=== PATIENT | female | born 1930 | race Caucasian/White ===

== ENCOUNTER 2020-10-09 08:38 | Inpatient (IN) | payer MEDICARE ==
[~2020-10-09] VITALS: Ht 165.1 cm; Wt 45.8 kg
--- NOTE | 2020-10-09 09:15 | NUR ---
[id number] frm usp for Ble edema worst Rle and weakness. ems BG reading high. Patient a/ox3, breathing even and unlabored, no sob noted, needs attended, kept comfortable. Attached to the teletypesetter monitor.
[2020-10-09 09:23] LABS: BASOPHILS # (AUTO) 0.1 /CMM (0.0-0.2); BASOPHILS % (AUTO) 0.4 % (0.0-2.0); EOSINOPHILS % (AUTO) 0.1 % (0.0-6.0); HEMATOCRIT 41 % (33-45); HEMOGLOBIN 13.2 g/dL (11.5-14.8); LYMPHOCYTES # (AUTO) 0.6 /CMM (0.8-4.8); LYMPHOCYTES % (AUTO) 4.4 % (20.0-44.0); MEAN CORPUSCULAR HGB CONC 32 g/dl (31.0-36.0); MEAN CORPUSCULAR VOLUME 94 fL (82-100); MONOCYTES # (AUTO) 1.1 /CMM (0.1-1.30); MONOCYTES % (AUTO) 7.9 % (2.0-12.0); NEUTROPHILS # (AUTO) 11.9 /CMM (1.8-8.9); NEUTROPHILS % (AUTO) 87.2 % (43.0-81.0); PLATELET COUNT (AUTO) 189 /CMM (150-450); RED BLOOD CELL COUNT(AUTO) 4.32 MIL/uL (4.0-5.2); WHITE BLOOD COUNT (AUTO) 13.7 K/uL (4.3-11.0)
--- NOTE | 2020-10-09 09:25 | NUR ---
BLOOD DRAWN AND SENT TO LAB.
--- NOTE | 2020-10-09 09:36 | NUR ---
THUY GRIJALVA CALLED WANTS TO P[place]P [place] TEAM LEADER THE PATIENT WHEN READY.
--- NOTE | 2020-10-09 09:36 | NUR ---
PEDORTHIST AT BEDSIDE FOR XRAY.
[2020-10-09 09:39] LABS: BILIRUBIN,URINE Negative (NEGATIVE); COLOR,URINE YELLOW (YELLOW); LEUKOCYTE ESTERASE ,URINE Trace (NEGATIVE); NITRITE, URINE Negative (NEGATIVE); PROTEIN,URINE Negative (NEGATIVE); UGLUCOSE >=1000 mg/dL (NEGATIVE); UROBILINOGEN,URINE 0.2 EU/dL (0.2)
[2020-10-09 09:40] LABS: BACTERIA,URINE Few /HPF (None Seen); SQUAMOUS EPITHELIAL CELL,UR Few /HPF (None Seen)
[2020-10-09 09:49] LABS: ALANINE AMINOTRANSFERASE 191 U/L (12-78); ALBUMIN 3.2 g/dL (3.4-5.0); ALKALINE PHOSPHATASE 118 U/L (46-116); ASPARTATE AMINOTRANSFERASE 67 U/L (15-37); BILIRUBIN,DIRECT 0.4 mg/dL (0.0-0.2); BILIRUBIN,TOTAL 1.1 mg/dL (0.2-1.0); CALCIUM, SERUM 9.2 mg/dL (8.5-10.1); CARBON DIOXIDE 23 mmol/L (21-32); CHLORIDE 90 mmol/L (98-107); CREATININE 1.4 mg/dL (0.6-1.3); POTASSIUM 4.5 mmol/L (3.5-5.1); SODIUM SERUM 125 mmol/L (136-145); TOTAL PROTEIN, SERUM 6.2 g/dL (6.4-8.2); UREA NITROGEN, BLOOD 44 mg/dL (7-18)
[2020-10-09 09:51] LABS: GLUCOSE 585 mg/dL (74-106)
[2020-10-09] MEDS ORDERED: INSULIN REGULAR, HUMAN 100 UNIT in IV NS 0.9% 99 ML IV STA ×2 (10:16)
--- NOTE | 2020-10-09 10:29 | NUR ---
CALLED PHARMACY FOR INSULIN DRIP. PATIENT A/OX4, SCREAMING AT TIMES, AMBULATING WITH NO ASSISTANCE, RE-DIRECTED PATIENT TO STAY IN BED.
[2020-10-09] MEDS ORDERED: IV PREMIX NS +20MEQ KCL 1,000 L IV PRN (10:30)
[2020-10-09] MEDS ORDERED: VANCOMYCIN 1 GM in IV D5W 250 ML IV ONE (11:00)
[2020-10-09] MEDS ORDERED: CEFEPIME 1 GM in IV D5W 50 ML IV ONE (11:00)
[2020-10-09] MEDS ORDERED: MULT-447 PO (11:04)
[2020-10-09] MEDS ORDERED: IV PREMIX NS +20MEQ KCL 1 L IV PRN (11:36)
--- NOTE | 2020-10-09 11:44 | NUR ---
LAB CALLED PT COVID NEGATIVE (-)
[2020-10-09] MEDS ORDERED: INSULIN REGULAR, HUMAN 100 UNIT/ML 10 ML VIAL ONE (11:59)
[2020-10-09 12:19] LABS: CALCIUM, SERUM 8.7 mg/dL (8.5-10.1); CREATININE 1.3 mg/dL (0.6-1.3); MAGNESIUM 2.1 mg/dL (1.8-2.4); PHOSPHORUS 3.1 mg/dL (2.5-4.9); POTASSIUM 4.2 mmol/L (3.5-5.1)
[2020-10-09] MEDS ORDERED: IV NS 0.9% 1,000 ML BAG IV ONE (12:30)
[2020-10-09] MEDS ORDERED: INSULIN REGULAR, HUMAN 100 UNIT/ML 10 ML VIAL SQ ONE (12:30)
[2020-10-09 13:48] LABS: CALCIUM, SERUM 9.1 mg/dL (8.5-10.1); CARBON DIOXIDE 21 mmol/L (21-32); CHLORIDE 95 mmol/L (98-107); CREATININE 1.4 mg/dL (0.6-1.3); MAGNESIUM 2.4 mg/dL (1.8-2.4); POTASSIUM 4.8 mmol/L (3.5-5.1); SODIUM SERUM 127 mmol/L (136-145); UREA NITROGEN, BLOOD 45 mg/dL (7-18)
[2020-10-09 13:50] LABS: GLUCOSE 498 mg/dL (74-106)
[2020-10-09] MEDS ORDERED: DEXTROSE 50%-WATER 50 ML DISP.SYRIN IV PRN (14:30)
[2020-10-09] MEDS ORDERED: MAG HYDROX/AL HYDROX/SIMETH 30 ML UDC PO PRN (14:30)
[2020-10-09] MEDS ORDERED: ZOLPIDEM TARTRATE 5 MG TABLET PO PRN (14:30)
[2020-10-09] MEDS ORDERED: Z GUARD REMEDY 2 OZ OINT TP PRN (14:30)
[2020-10-09] MEDS ORDERED: ACETAMINOPHEN 325 MG TABLET PO PRN (14:30)
[2020-10-09] MEDS ORDERED: FUROSEMIDE 40 MG/4 ML VIAL IV SCH (14:30)
[2020-10-09] MEDS ORDERED: MAGNESIUM HYDROXIDE 30 ML UDC PO PRN (14:30)
[2020-10-09] MEDS ORDERED: FUROSEMIDE 40 MG/4 ML VIAL ONE (15:05)
--- NOTE | 2020-10-09 15:15 | NUR ---
VERIFIED WITH PHARMACY AND SPOKE TO JAMSHID, PER DR. NG D/[facility] THE INSULIN DRIP.
[2020-10-09 15:56] LABS: CALCIUM, SERUM 8.9 mg/dL (8.5-10.1); CARBON DIOXIDE 19 mmol/L (21-32); CHLORIDE 96 mmol/L (98-107); CREATININE 1.4 mg/dL (0.6-1.3); MAGNESIUM 2.3 mg/dL (1.8-2.4); PHOSPHORUS 2.8 mg/dL (2.5-4.9); POTASSIUM 4.6 mmol/L (3.5-5.1); SODIUM SERUM 128 mmol/L (136-145); UREA NITROGEN, BLOOD 45 mg/dL (7-18)
[2020-10-09] MEDS ORDERED: ENOXAPARIN SODIUM 30 MG/0.3 ML DISP.SYRIN SQ SCH (16:00)
[2020-10-09 16:09] LABS: GLUCOSE 409 mg/dL (74-106)
--- NOTE | 2020-10-09 16:47 | NUR ---
PATIENT RESTING, NO DISTRESS NOTED.
[2020-10-09] MEDS ORDERED: APIXABAN 5 MG TABLET PO SCH ×2 (17:00)
[2020-10-09] MEDS: APIXABAN 2.5 MG TABLET PO SCH (17:35)
[2020-10-09] MEDS: BLOOD SUGAR DIAGNOSTIC 1 EACH STRIP IN SCH ×2 (17:43→21:44)
[2020-10-09] MEDS: INSULIN REGULAR, HUMAN 100 UNIT/ML 3 ML VIAL SQ PRN ×2 (17:44→21:31)
--- NOTE | 2020-10-09 17:55 | NUR ---
room 201
--- NOTE | 2020-10-09 18:11 | NUR ---
REPORT GIVEN TO MAURIZIO HAYWOOD FOR PUJA.
--- NOTE | 2020-10-09 18:17 | NUR ---
RN NOTES RECEIVED PATIENT REPORT FROM YOBANY TREVINO FROM ER.
--- NOTE | 2020-10-09 18:52 | NUR ---
PATIENT A/OX4, BREATHING EVEN AND UNLABORED, NO SOB NOTED, NEEDS ATTENDED, KEPT COMFORTABLE. ENDORSED TO SUNG HAYWOOD.
--- NOTE | 2020-10-09 18:53 | NUR ---
RN NOTES PATIENT ARRIVED TO UNIT VIA GURNEY ACCOMPANIED BY 3 ER STAFF; BEDSIDE ENDORSEMENT RECEIVED FROM URIEL. VS TAKEN: BP-104/50, P-102, RESP-22, TEMP-97.3, A5KIW-35% IN RA. PRN NORCO GIVEN TO PATIENT SECONDARY TO COMPLAINT OF LEG PAIN. WILL CONTINUE TO MONITOR AND ENDORSE TO ACUTE CARE CLINICAL NURSE SPECIALIST RN FOR PUJA.
[2020-10-09] MEDS: HYDROCODONE/APAP 5/325MG TABLET PO PRN (19:05)
--- NOTE | 2020-10-09 19:30 | NUR ---
WEBBING SEAMER POUND NET NOTES PATIENT IN BED, AWAKE, ALERT AND ORIENTED X 2-3. BREATHING EVEN AND UNLABORED ON ROOM AIR. SHOWS NO SIGNS OF ACUTE RESPIRATORY DISTRESS. NO ACUTE PAIN. IV ON SHELLY 20G ITS CLEAN DRY AND INTACT. SHOWS NO SIGNS OF INFILTRATION, NO REDNESS. SAFETY PRECAUTIONS IN PLACE. BED IN LOWEST POSITION, LOCKED, AND CALL LIGHT KEPT WITHIN REACH. WILL CONTINUE TO MONITOR
--- NOTE | 2020-10-09 19:31 | NUR ---
REWIND OPERATOR NOTES COMPLETED SKIN ASSESSMENT AND TOOK PICTURED. ORDER WOUND CONSULT. COMPLETED BELONGINGS CHECKLIST. ORIENTED TO ROOM AND STAFF AND CALL LIGHT KEPT WITHIN REACH.
[2020-10-09 20:00] VITALS: BP 104/50
[2020-10-09] MEDS ORDERED: MORPHINE SULFATE INJ 2 MG/ML DISP.SYRIN IV PRN (22:50)
--- NOTE | 2020-10-09 22:58 | NUR ---
CRINKLING MACHINE OPERATOR NOTES RECEIVED ORDER FOR MORPHINE IV FROM . PT CONTINUE TO COMPLAIN OF PAIN AND WAS VERY RESTLESS. GIVEN PRN MORPHINE AT 2258. VITAL SIGNS WNL. WILL CONTINUE TO MONITOR.
[2020-10-10] VITALS: BP 102/64
--- NOTE | 2020-10-10 00:10 | NUR ---
SONG LYRICIST NOTES PT CONTINUED TO GET OUT OF BED, REMOVED TELE BOX, AND IV. RECEIVED ORDERS FOR RESTRAINTS FROM MD FOR PT SAFETY. MD ALSO AWARE OF NEW RHYTHM FROM EKG, AFLUTTER. PT IS ASYMPTOMATIC, NO NEW ORDERS FROM MD. AWAITING CARDIO CONSULT IN AM.
[2020-10-10 04:00] VITALS: BP 99/55
--- NOTE | 2020-10-10 05:00 | NUR ---
GOLF COURSE DESIGNER NOTES KEPT RESTRAINTS ON PT FOR APPOX 20MINS AT 0040 THEN REMOVED RESTRAINTS. WITH RESTRAINTS ON PT CONTINUED TO SCREAM AND YELL DISTURBING OTHER PTS. HAD VEST TAILOR SIT BY DOOR TO MONITOR PT. RECEIVED ORDERS FOR SITTER BC PATIENT CONTINUOUSLY GOES IN AND OUT OF BED, REMOVING TELE MONITOR, REMOVING IV LINES, AND GENERALLY RESTLESS. PT IS ALSO UNSTABLE UPON STANDING. CHARGE NURSE AND NURSING SUP AWARE FOR SITTER ORDERS.
[2020-10-10] MEDS: ONDANSETRON HCL/PF 4 MG/2 ML VIAL IVP PRN ×2 (05:28→22:11)
--- NOTE | 2020-10-10 06:38 | NUR ---
CONSERVATION AGENT NOTES PATIENT IN BED, AWAKE, ALERT AND ORIENTED X 1-2. BREATHING EVEN AND UNLABORED ON ROOM AIR. SHOWS NO SIGNS OF ACUTE RESPIRATORY DISTRESS. NO ACUTE PAIN. TELE MONITOR AFIB CONTROLLED. IV ON R FOREARM 22G ITS CLEAN DRY AND INTACT. SHOWS NO SIGNS OF INFILTRATION, NO REDNESS. ALL DUE MEDICATIONS. ALL NEEDS ATTENDED TO. SAFETY PRECAUTIONS IN PLACE. BED IN LOWEST POSITION, LOCKED, AND CALL LIGHT KEPT WITHIN REACH. WILL ENDORSE TO ONCOMING NURSE.
[2020-10-10 06:56] LABS: BASOPHILS # (AUTO) 0.1 /CMM (0.0-0.2); BASOPHILS % (AUTO) 0.6 % (0.0-2.0); HEMATOCRIT 44 % (33-45); HEMOGLOBIN 13.8 g/dL (11.5-14.8); LYMPHOCYTES # (AUTO) 0.8 /CMM (0.8-4.8); LYMPHOCYTES % (AUTO) 4.2 % (20.0-44.0); MEAN CORPUSCULAR HGB CONC 31 g/dl (31.0-36.0); MEAN CORPUSCULAR VOLUME 95 fL (82-100); MONOCYTES # (AUTO) 1.2 /CMM (0.1-1.30); MONOCYTES % (AUTO) 5.9 % (2.0-12.0); NEUTROPHILS # (AUTO) 17.9 /CMM (1.8-8.9); NEUTROPHILS % (AUTO) 89.3 % (43.0-81.0); PLATELET COUNT (AUTO) 204 /CMM (150-450); RED BLOOD CELL COUNT(AUTO) 4.62 MIL/uL (4.0-5.2)
[2020-10-10] MEDS: BLOOD SUGAR DIAGNOSTIC 1 EACH STRIP IN SCH ×4 (06:57→22:12)
--- NOTE | 2020-10-10 07:20 | NUR ---
COMMUNITY EDUCATION SPECIALIST OPENING NOTES PATIENT IS IN BED RESTING, ABLE TO BE AWAKENED. ALERT AND ORIENTED X1-2, ABLE TO MAKE NEEDS KNOWN. BREATHING EVEN AND UNLABORED, TOLERATING ON ROOM AIR, NO SOB. ON TELE MONITORING, READING OF AFIB CONTROLLED. IV ON R FOREARM #22G PATENT AND INTACT. CURRENTLY W/ 1:1 SITTER AT BEDSIDE. SAFETY PRECAUTIONS IN PLACE: BED LOCKED AND ON LOWEST POSITION, SR UP X2, CALL LIGHT WITHIN REACH. WILL CONTINUE TO MONITOR.
[2020-10-10 07:30] LABS: CALCIUM, SERUM 9.3 mg/dL (8.5-10.1); CREATININE 1.2 mg/dL (0.6-1.3); MAGNESIUM 2.4 mg/dL (1.8-2.4)
--- NOTE | 2020-10-10 07:30 | NUR ---
RN NOTES PATIENT WAS GETTING AGITATED WHEN VITAL SIGNS WERE BEING TAKEN PER STAFF ASSIGNED; EXPLAINED IMPORTANCE TO PATIENT BUT STILL GETS AGITATED WHEN VS ATTEMPTED TO BE TAKEN.
[2020-10-10 07:38] LABS: THYROID STIMULATING HORMONE 0.799 uIU/mL (0.358-3.74)
[2020-10-10] MEDS ORDERED: FUROSEMIDE 40 MG/4 ML VIAL IV SCH (09:00)
--- NOTE | 2020-10-10 09:11 | NUR ---
WOUND CARE CONSULT: REVIEWED CHART, NURSING DOCUMENTATION AND PHOTOS WHICH INDICATE DISCOLORATION ON LEGS AND CHEST WITH SKIN TEAR TO LEFT ELBOW AREA, PRESENT ON ADMISSION. RECOMMENDATIONS MADE FOR SKIN PROTECTION AND WOUND CARE. DISCUSSED WITH NURSING STAFF. MD IN AGREEMENT WITH PLAN OF CARE.
[2020-10-10] MEDS: APIXABAN 2.5 MG TABLET PO SCH ×2 (09:39→16:57)
[2020-10-10] MEDS: VANCOMYCIN HCL 0.75 GM in IV D5W 250 ML IV SCH (11:19)
[2020-10-10] MEDS: INSULIN REGULAR, HUMAN 100 UNIT/ML 3 ML VIAL SQ PRN ×3 (12:23→22:29)
--- NOTE | 2020-10-10 14:00 | NUR ---
RN NOTES PATIENT ABLE TO DRINK ICE WATER AND MILK, NO SWALLOWING ISSUES NOTED.
[2020-10-10] MEDS: HYDROCODONE/APAP 5/325MG TABLET PO PRN ×2 (14:29→20:04)
--- NOTE | 2020-10-10 17:35 | NUR ---
RN NOTES URINE SPECIMEN COLLECTED AND PLACED INSIDE THE REFRIGERATOR.
--- NOTE | 2020-10-10 19:00 | NUR ---
NIGHT COURT MAGISTRATE CLOSING NOTES PATIENT IS IN BED RESTING, ABLE TO BE AWAKENED. ALERT AND ORIENTED X1-2, MAKSE NEEDS KNOWN. BREATHING EVEN AND UNLABORED, CONTINUES TO TOLERATE ROOM AIR. ON TELE MONITORING, READING OF AFIB CONTROLLED/AFLUTTER. IV LINE ON R FOREARM #22G PATENT AND INTACT. CURRENTLY W/ 1:1 SITTER AT BEDSIDE. PATIENT NOTED W/ MULTIPLE EPISODES OF TRYING TO GET OUT OF BED UNASSISTED TO GO TO THE BATHROOM; SITTER AND OYSTER PLANTER ASSISTED PATIENT APPLICABLE. PATIENT YELLING TO BE LEFT ALONE WHEN IN THE BATHROOM. SEEN BY WOUND CARE NURSE TODAY W/ ORDERS NOTED. SAFETY PRECAUTIONS MAINTAINED: BED LOCKED AND ON LOWEST POSITION, SR UP X2, CALL LIGHT WITHIN REACH. WILL ENDORSE TO RELATIONSHIP SPECIALIST RN FOR PUJA.
--- NOTE | 2020-10-10 19:30 | NUR ---
RN NOTES PATIENT IS IN BED RESTING, ABLE TO BE AWAKENED. ALERT AND ORIENTED X1-2, MAKES NEEDS KNOWN. BREATHING EVEN AND UNLABORED, CONTINUES TO TOLERATE ROOM AIR. ON TELE MONITORING, READING OF AFIB CONTROLLED/AFLUTTER. IV LINE ON R FOREARM #22G PATENT AND INTACT. CURRENTLY W/ 1:1 SITTER AT BEDSIDE.SAFETY PRECAUTIONS MAINTAINED: BED LOCKED AND ON LOWEST POSITION, SR UP X2, CALL LIGHT WITHIN REACH. WILL CONTINUE TO MONITOR.
[2020-10-10 20:00] VITALS: BP 139/76
[2020-10-11] VITALS: BP 105/64
[2020-10-11] MEDS: HYDROCODONE/APAP 5/325MG TABLET PO PRN ×3 (02:00→19:34)
[2020-10-11 04:00] VITALS: BP 101/65
[2020-10-11] MEDS: BLOOD SUGAR DIAGNOSTIC 1 EACH STRIP IN SCH ×4 (06:46→21:37)
--- NOTE | 2020-10-11 06:54 | NUR ---
RN NOTES PATIENT IS IN BED RESTING, ABLE TO BE AWAKENED. ALERT AND ORIENTED X1-2, MAKES NEEDS KNOWN. BREATHING EVEN AND UNLABORED, CONTINUES TO TOLERATE ROOM AIR. ON TELE MONITORING, READING OF AFIB CONTROLLED/AFLUTTER. IV LINE ON R FOREARM #22G PATENT AND INTACT. CURRENTLY W/ 1:1 SITTER AT BEDSIDE.SAFETY PRECAUTIONS MAINTAINED: BED LOCKED AND ON LOWEST POSITION, SR UP X2, CALL LIGHT WITHIN REACH.PER LAB THE URINE SPECIMEN COLLECTED CAN NOT BE USED WILL ENDORSE TO NEXT SHIFT TO COLLECT URINE AGAIN. WILL ENDORSE CARE TO DAY SHIFT.
[2020-10-11 07:09] LABS: BASOPHILS % (AUTO) 0.3 % (0.0-2.0); EOSINOPHILS % (AUTO) 0.2 % (0.0-6.0); HEMATOCRIT 45 % (33-45); HEMOGLOBIN 14.1 g/dL (11.5-14.8); LYMPHOCYTES # (AUTO) 1.1 /CMM (0.8-4.8); LYMPHOCYTES % (AUTO) 6.1 % (20.0-44.0); MEAN CORPUSCULAR HGB CONC 32 g/dl (31.0-36.0); MEAN CORPUSCULAR VOLUME 94 fL (82-100); MONOCYTES # (AUTO) 1.7 /CMM (0.1-1.30); MONOCYTES % (AUTO) 9.4 % (2.0-12.0); NEUTROPHILS # (AUTO) 15.3 /CMM (1.8-8.9); PLATELET COUNT (AUTO) 219 /CMM (150-450); RED BLOOD CELL COUNT(AUTO) 4.77 MIL/uL (4.0-5.2); WHITE BLOOD COUNT (AUTO) 18.2 K/uL (4.3-11.0)
[2020-10-11 07:49] LABS: ALBUMIN 2.9 g/dL (3.4-5.0); ALKALINE PHOSPHATASE 221 U/L (46-116); CALCIUM, SERUM 9.2 mg/dL (8.5-10.1); CARBON DIOXIDE 18 mmol/L (21-32); CHLORIDE 97 mmol/L (98-107); CREATININE 1.8 mg/dL (0.6-1.3); GLUCOSE 124 mg/dL (74-106); MAGNESIUM 2.7 mg/dL (1.8-2.4); PHOSPHORUS 4.9 mg/dL (2.5-4.9); POTASSIUM 5.1 mmol/L (3.5-5.1); SODIUM SERUM 128 mmol/L (136-145); TOTAL PROTEIN, SERUM 5.7 g/dL (6.4-8.2)
[2020-10-11 08:00] VITALS: BP 99/62
--- NOTE | 2020-10-11 08:00 | NUR ---
RN Opening note Received patient in bed, awaken able to responds all stimuli, Pt screaming in tis morning, given pain medication and patient getting calm. Skin is warm to touch keep clean/dry intact IV site on right FA 22g, respiratory even and unlabored oj room air O2sat 98%. Kept locked bed with elevated HOB for aspiration precaution and ensure airway and lowest bed foe safety. Call light within reach, will continue to monitor.
[2020-10-11] MEDS: APIXABAN 2.5 MG TABLET PO SCH (08:10)
--- NOTE | 2020-10-11 08:30 | NUR ---
Patient noted Toroponin level 1.043 this morning, Dr. Garcia made aware. Will continue to monitor.
[2020-10-11 09:17] LABS: ALANINE AMINOTRANSFERASE 1326 U/L (12-78); ASPARTATE AMINOTRANSFERASE 1325 U/L (15-37)
[2020-10-11 09:21] LABS: UREA NITROGEN, BLOOD 86 mg/dL (7-18)
[2020-10-11] MEDS: ASPIRIN 81 MG TAB.CHEW PO SCH (10:15)
[2020-10-11 10:38] LABS: THYROID STIMULATING HORMONE 1.382 uIU/mL (0.358-3.74); URIC ACID 10.8 mg/dL (2.6-7.2)
--- NOTE | 2020-10-11 10:45 | NUR ---
Patient received order Echo and Duplex, but will hold until clarify CPR result according emergency room technician .
[2020-10-11 11:15] LABS: CREATINE KINASE, TOTAL 311 U/L (26-192)
[2020-10-11 12:00] VITALS: BP 109/48
[2020-10-11] MEDS: INSULIN REGULAR, HUMAN 100 UNIT/ML 3 ML VIAL SQ PRN ×3 (12:07→21:39)
[2020-10-11] MEDS: VANCOMYCIN HCL 0.75 GM in IV D5W 250 ML IV SCH (13:02)
[2020-10-11 16:00] VITALS: BP 95/65
[2020-10-11] MEDS: APIXABAN 5 MG TABLET PO SCH (17:16)
--- NOTE | 2020-10-11 17:59 | NUR ---
Patient received MRI order, obtained sign of consent over the phone by grand Son/Padilla Whyte(Lobo).
--- NOTE | 2020-10-11 18:41 | NUR ---
RN closing Patient in bed resting, does no appears distress or discomfort. Skin is warm to touch, keep clean/dry, intact IV on left hand 22g. Respiratory even and unlabored on room air O2sat 97%. Kept elevated HOB for ensure air way and aspiration precaution and lowest bed for safety. Call light within reach, will endorse real estate account executive
--- NOTE | 2020-10-11 19:15 | NUR ---
RN NOTE Patient Received. Patient is noted in bed, awake and verbally responsive. Patient is alert and oriented x1. Breathing even and non labored currently on room air. No shortness of breath or acute distress noted. Patient continues on tele monitor noted with Aflutter with a rate of 93. IV site to RFA 22G noted patent and intact. Bilateral wrist soft restraints noted in place, skin warm to touch. Safety precautions in place with bed in lowest position and locked, bed alarm on. Call light within reach. All needs attended to promptly. Will continue plan of care as ordered.
[2020-10-11 20:00] VITALS: BP 98/63
[2020-10-11 20:26] LABS: BILIRUBIN,URINE NEGATIVE (NEGATIVE); COLOR,URINE YELLOW (YELLOW); LEUKOCYTE ESTERASE ,URINE NEGATIVE (NEGATIVE); NITRITE, URINE NEGATIVE (NEGATIVE); PH,URINE 5.5 (5.0-8.0); PROTEIN,URINE TRACE mg/dl (NEGATIVE); UGLUCOSE 100 MG/DL mg/dL (NEGATIVE); UROBILINOGEN,URINE 0.2 EU/dL (0.2)
[2020-10-11 20:33] LABS: CREATININE, URINE 98.5 MG/DL (30.0-125.0); URINE TOTAL PROTEIN 59.6 mg/dL (0-11.9)
[2020-10-11 20:35] LABS: BACTERIA,URINE 2+ /HPF (None Seen); HYALINE CASTS, URINE Few /LPF (None Seen); RBC,URINE 0-2 /HPF (0-2); SQUAMOUS EPITHELIAL CELL,UR 0-2 /HPF (None Seen); URINE AMORPHOUS URATE Moderate /HPF (None Seen); WBC,URINE 0-2 /HPF (0-3)
[2020-10-11 20:55] LABS: EOSINOPHIL,URINE None Seen
[2020-10-12] VITALS: BP 99/61
[2020-10-12] MEDS: HYDROCODONE/APAP 5/325MG TABLET PO PRN (01:37)
[2020-10-12 04:00] VITALS: BP 102/58
[2020-10-12 06:30] LABS: EOSINOPHILS % (AUTO) 0.2 % (0.0-6.0); HEMATOCRIT 41 % (33-45); HEMOGLOBIN 13.2 g/dL (11.5-14.8); LYMPHOCYTES % (AUTO) 6.2 % (20.0-44.0); MEAN CORPUSCULAR HGB CONC 33 g/dl (31.0-36.0); MEAN CORPUSCULAR VOLUME 92 fL (82-100); MONOCYTES # (AUTO) 1.5 /CMM (0.1-1.30); MONOCYTES % (AUTO) 9.1 % (2.0-12.0); NEUTROPHILS # (AUTO) 13.9 /CMM (1.8-8.9); NEUTROPHILS % (AUTO) 84.5 % (43.0-81.0); PLATELET COUNT (AUTO) 195 /CMM (150-450); WHITE BLOOD COUNT (AUTO) 16.5 K/uL (4.3-11.0)
[2020-10-12] MEDS: BLOOD SUGAR DIAGNOSTIC 1 EACH STRIP IN SCH ×2 (06:35→12:19)
[2020-10-12] MEDS: INSULIN REGULAR, HUMAN 100 UNIT/ML 3 ML VIAL SQ PRN ×2 (06:39→12:29)
--- NOTE | 2020-10-12 07:00 | NUR ---
RN OPENING NOTE RECEIVED PT AWAKE IN BED AT THIS TIME. PT AOX1-2. NO SOB NOTED, NO S/S OF ANY ACUTE DISTRESS NOTED, NO C/O PAIN AT THIS TIME. PT STABLE ON RA. IV ACCESS NOTED IN RFA G#22, INTACT, PATENT AND FLUSHING WELL. PT NOTED ON BILATERAL SOFT WRIST RESTRAINS. SKIN AROUND RESTRAINTS INTACT, GOOD CIRCULATION NOTED, PULSES PRESENT BILATERALLY, CAPILLARY RILL <3SECONDS. ASPIRATIONS AND SAFETY PRECAUTIONS IN PLACE AND MAINTAINED AT ALL TIMES. BED IN LOWEST LOCKED POSITION, SIDE RAILS UP, HOB ELEVATED, TABLE AND CALL LIGHT WITHIN REACH. WILL CONTINUE TO MONITOR.
--- NOTE | 2020-10-12 07:14 | NUR ---
RN NOTE Patient is noted in bed, awake and verbally responsive. Patient is alert and oriented x1. Breathing even and non labored currently on room air. No shortness of breath or acute distress noted. Patient continues on tele monitor noted with Aflutter with a rate of 91. IV site to RFA 22G noted patent and intact. Mediations administered and tolerated well. Accu Check rendered and insulin given as per sliding scale. Bilateral wrist soft restraints noted in place, skin warm to touch. Safety precautions in place with bed in lowest position and locked, bed alarm on. Call light within reach. All needs attended to promptly. Will endorse to continue plan of care as ordered.
[2020-10-12 07:32] LABS: ALANINE AMINOTRANSFERASE 1039 U/L (12-78); ALBUMIN 2.7 g/dL (3.4-5.0); ALKALINE PHOSPHATASE 197 U/L (46-116); ASPARTATE AMINOTRANSFERASE 544 U/L (15-37); BILIRUBIN,DIRECT 0.7 mg/dL (0.0-0.2); CARBON DIOXIDE 24 mmol/L (21-32); CHLORIDE 97 mmol/L (98-107); CREATININE 1.4 mg/dL (0.6-1.3); GLUCOSE 151 mg/dL (74-106); MAGNESIUM 2.4 mg/dL (1.8-2.4); PHOSPHORUS 3.6 mg/dL (2.5-4.9); POTASSIUM 4.8 mmol/L (3.5-5.1); SODIUM SERUM 129 mmol/L (136-145); TOTAL PROTEIN, SERUM 5.2 g/dL (6.4-8.2)
[2020-10-12 07:34] LABS: UREA NITROGEN, BLOOD 84 mg/dL (7-18)
[2020-10-12 08:00] VITALS: BP 94/58
[2020-10-12 08:07] LABS: PTH, INTACT 48 pg/mL (15-65)
[2020-10-12] MEDS: APIXABAN 5 MG TABLET PO SCH (08:48)
[2020-10-12] MEDS: ASPIRIN 81 MG TAB.CHEW PO SCH (08:49)
[2020-10-12 11:07] LABS: *SPE A/G RATIO 1.2 (0.7-1.7); *SPE ALBUMIN 2.8 g/dL (2.9-4.4); *SPE ALPHA-1-GLOBULIN 0.4 g/dL (0.0-0.4); *SPE ALPHA-2-GLOBULIN 0.6 g/dL (0.4-1.0); *SPE GLOBULIN, TOTAL 2.4 g/dL (2.2-3.9); *SPE M-SPIKE Not Observed g/dL (Not Observed); *SPEGAMMA GLOBULIN 0.4 g/dL (0.4-1.8)
[2020-10-12] MEDS: VANCOMYCIN HCL 0.75 GM in IV D5W 250 ML IV SCH (12:21)
--- NOTE | 2020-10-12 14:15 | NUR ---
PT's EJECTION FRACTION OF 25%-30%, DR NG MADE AWARE. NO NEW ORDERS AT THIS TIME. WILL CONTINUE WITH PLAN OF CARE
--- NOTE | 2020-10-12 15:01 | NUR ---
RECEIVED ORDERS AT THIS TIME TO ADD KEFLEX 500MG PO BID X 5DAYS ON PT'S TMS FROM DR NG. ORDERS READ BACK AND CARRIED OUT. WILL CONTINUE TO MONITOR
[2020-10-12 16:00] VITALS: BP 96/71
--- NOTE | 2020-10-12 16:30 | NUR ---
RALPH ([phone]), PT's GRAND SON UNABLE TO BE REACHED BY PHONE TWICE TO UPDATE ABOUT PT BEING DISCHARGED. WILL F/U AND CONTINUE WITH PLAN OF CARE
--- NOTE | 2020-10-12 16:50 | NUR ---
HAND BENDER NOTES PT DISCHARGED TO [facility] AT THIS TIME. PT MEDICALLY CLEARED FOR DISCHARGE. REPORT CALLED IN TO DENIS DEXTER @[facility]. ALL CARE,LA NEEDS, MEDICATIONS AND TREATMENT ADMINISTERED ANTICIPATED PER ORDER. PT KEPT CLEAN AND DRY. DISCHARGE INSTRUCTIONS PROVIDED FOR. PT BELONGINGS ACCOUNTED FOR, SIGNED BY PT AND RETURNED TO PT. IV ACCESS REMOVED, PRESSURE APPLIED, SECURED WITH GAUZE AND TAPE. NO S/O BLEEDING NOTED. ID BAND REMOVED. PICTURES TAKEN AND FILED IN CHART. PT TRANSPORTED OUT OF UNIT IN STABLE CONDITION ACCOMPANIED ON A GURNEY BY TWO AMBULANCE PERSONNELS. DR BERENICE LIU
--- NOTE | 2020-10-12 17:30 | NUR ---
RECEIVED CALL FROM RALPH ([phone]), PT's GRAND SON. UPDATE PROVIDED ON PT DISCHARGED BACK TO [facility] . WILL F/U AND CONTINUE WITH PLAN OF CARE
== END 2020-10-12 15:00 | DRG 280 ==
LOC: ER 08:47 → TRANSITION 10:41 → TELE2 17:58
DX: I21.4 Non-ST elevation (NSTEMI) myocardial infarction (principal); N17.0 Acute kidney failure with tubular necrosis; L03.115 Cellulitis of right lower limb; E87.1 Hypo-osmolality and hyponatremia; E87.2 Acidosis; J90 Pleural effusion, not elsewhere classified; L03.116 Cellulitis of left lower limb; F03.90 Unspecified dementia, unspecified severity, without behavioral disturbance, psychotic disturbance, mood disturbance, and anxiety; I48.91 Unspecified atrial fibrillation; Z20.822 Contact with and (suspected) exposure to COVID-19; K57.30 Diverticulosis of large intestine without perforation or abscess without bleeding; D72.829 Elevated white blood cell count, unspecified; N13.9 Obstructive and reflux uropathy, unspecified; E86.1 Hypovolemia; R74.01 Elevation of levels of liver transaminase levels; E11.65 Type 2 diabetes mellitus with hyperglycemia; D25.9 Leiomyoma of uterus, unspecified
CPT/HCPCS: 36415; 71045-TC; 71250-TC; 76856-TC; 80048-TC; 80053-TC; 80061-TC; 80076-TC; 80202-TC; 81001; 82533; 82550-TC; 82553; 82570-TC; 82962-TC; 83605-TC; 83735-TC; 83880; 83935-TC; 83970; 84100-TC; 84155; 84155-TC; 84165; 84300-TC; 84443-TC; 84484-TC; 84550-TC; 85025-TC; 85730-TC; 86304; 87040-TC; 87081-TC; 87086-TC; 93307-TC; 93970-TC; A6253; G0378; J0692; J1815; J1940; J2270; J2405; J3370; J3490; J7030; J7060; U0003

== ENCOUNTER 2020-10-14 19:16 | Inpatient (IN) | payer MEDICARE ==
[~2020-10-14] VITALS: Ht 170.2 cm; Wt 42.6 kg
[~2020-10-14 19:16] MED LIST: MULT-447 PO
--- NOTE | 2020-10-14 19:20 | NUR ---
PT CHRISTOPHER FROM [facility] C/O ABD PAIN, POOR ORAL INTAKE, WORSENING BLE EDEMA. PT AWAKE, CONFUSED, AAOX1. VITAL SIGNS STABLE. RESPIRATIONS EVEN AND UNLABORED. NOTED WOUNDS BILATERAL UPPER AND LOWER EXTREMITIES AND WOUND R EYE LID. DRESSING ON SITE, NO BLEEDING NOTED. NO ACUTE DISTRESS NOTED AT THIS TIME. PT CHANGED TO GOWN AND PLACED ON MONITOR, WILL CONTINUE TO MONITOR
--- NOTE | 2020-10-14 19:20 | NUR ---
Note rudolphone in EDM - 10/14/20 at 2305 by ANALY PT CHRISTOPHER FROM [facility] C/O ABD PAIN, POOR ORAL INTAKE, WORSENING BLE EDEMA. PT AWAKE, CONFUSED. VITAL SIGNS STABLE. RESPIRATIONS EVEN AND UNLABORED. NO ACUTE DISTRESS NOTED AT THIS TIME. PLACED ON MONITOR, WILL CONTINUE TO MONITOR
[2020-10-14] MEDS ORDERED: IV NS 0.9% 500 ML BAG IV ONE (20:00)
--- NOTE | 2020-10-14 20:13 | NUR ---
PT ANITHA. COAL DUMPING EQUIPMENT OPERATOR AT BEDSIDE FOR BLOOD DRAW
--- NOTE | 2020-10-14 20:46 | NUR ---
RADIOLOGY AT BEDSIDE FOR CXR
--- NOTE | 2020-10-14 21:00 | NUR ---
URINE COLLECTED AND SENT TO LAB
--- NOTE | 2020-10-14 21:25 | NUR ---
COVID SWAB COLLECTED AND SENT TO LAB
[2020-10-14 21:29] LABS: BASOPHILS # (AUTO) 0.1 /CMM (0.0-0.2); BASOPHILS % (AUTO) 0.4 % (0.0-2.0); HEMATOCRIT 49 % (33-45); HEMOGLOBIN 15.6 g/dL (11.5-14.8); LYMPHOCYTES # (AUTO) 0.4 /CMM (0.8-4.8); LYMPHOCYTES % (AUTO) 1.9 % (20.0-44.0); MEAN CORPUSCULAR HGB CONC 32 g/dl (31.0-36.0); MEAN CORPUSCULAR VOLUME 96 fL (82-100); MONOCYTES # (AUTO) 1.2 /CMM (0.1-1.30); MONOCYTES % (AUTO) 5.5 % (2.0-12.0); NEUTROPHILS # (AUTO) 19.6 /CMM (1.8-8.9); NEUTROPHILS % (AUTO) 92.2 % (43.0-81.0); PLATELET COUNT (AUTO) 189 /CMM (150-450); RED BLOOD CELL COUNT(AUTO) 5.16 MIL/uL (4.0-5.2); WHITE BLOOD COUNT (AUTO) 21.3 K/uL (4.3-11.0)
[2020-10-14 21:42] LABS: BILIRUBIN,URINE SMALL (NEGATIVE); COLOR,URINE YELLOW (YELLOW); LEUKOCYTE ESTERASE ,URINE Negative (NEGATIVE); NITRITE, URINE Negative (NEGATIVE); PROTEIN,URINE Trace mg/dl (NEGATIVE); UGLUCOSE >=1000 mg/dL (NEGATIVE); UROBILINOGEN,URINE 0.2 EU/dL (0.2)
[2020-10-14 21:53] LABS: ALANINE AMINOTRANSFERASE 933 U/L (12-78); ALBUMIN 3.3 g/dL (3.4-5.0); ALKALINE PHOSPHATASE 228 U/L (46-116); ASPARTATE AMINOTRANSFERASE 165 U/L (15-37); BILIRUBIN,DIRECT 0.9 mg/dL (0.0-0.2); BILIRUBIN,TOTAL 1.5 mg/dL (0.2-1.0); CALCIUM, SERUM 9.2 mg/dL (8.5-10.1); CARBON DIOXIDE 15 mmol/L (21-32); CHLORIDE 90 mmol/L (98-107); CREATININE 1.6 mg/dL (0.6-1.3); SODIUM SERUM 121 mmol/L (136-145); TOTAL PROTEIN, SERUM 6.5 g/dL (6.4-8.2)
[2020-10-14 21:56] LABS: POTASSIUM 6.4 mmol/L (3.5-5.1)
[2020-10-14 21:57] LABS: GLUCOSE 523 mg/dL (74-106); UREA NITROGEN, BLOOD 104 mg/dL (7-18)
[2020-10-14] MEDS ORDERED: VANCOMYCIN 1 GM in IV D5W 250 ML IV ONE (22:00)
[2020-10-14] MEDS ORDERED: PIPERACILLIN /TAZOBACTAM 3.375 G in IV D5W 50 ML IV ONE (22:00)
[2020-10-14] MEDS ORDERED: IV NS 0.9% 1,000 ML BAG IV ONE ×2 (22:00)
[2020-10-14 22:06] LABS: BACTERIA,URINE Few /HPF (None Seen); HYALINE CASTS, URINE Rare /LPF (None Seen); RBC,URINE 0-2 /HPF (0-2); SQUAMOUS EPITHELIAL CELL,UR Few /HPF (None Seen); WBC,URINE 0-2 /HPF (0-3)
--- NOTE | 2020-10-14 22:10 | NUR ---
PT PULLED OUT IV. Catheter intact and site benign. Pressure and 4x4 applied to site. No bleeding noted.
[2020-10-14] MEDS ORDERED: INSULIN REGULAR, HUMAN 100 UNIT/ML 10 ML VIAL ONE (22:20)
[2020-10-14] MEDS ORDERED: INSULIN REGULAR, HUMAN 100 UNIT/ML 10 ML VIAL IV ONE (22:30)
--- NOTE | 2020-10-14 22:32 | NUR ---
GROUP SOCIAL WORKER AT BEDSIDE FOR BLOOD CULTURE BLOOD DRAW
--- NOTE | 2020-10-14 22:45 | NUR ---
REC'D NEG COVID RESULTS. AWARE
[2020-10-14] MEDS ORDERED: VANCOMYCIN 1 GM VIAL ONE (22:47)
[2020-10-14] MEDS ORDERED: PIPERACILLIN /TAZOBACTAM 3.375 G VIAL IV ONE (22:48)
[2020-10-14] MEDS ORDERED: MAG HYDROX/AL HYDROX/SIMETH 30 ML UDC PO PRN (23:00)
[2020-10-14] MEDS ORDERED: DEXTROSE 50%-WATER 50 ML DISP.SYRIN IV PRN (23:00)
[2020-10-14] MEDS ORDERED: MAGNESIUM HYDROXIDE 30 ML UDC PO PRN (23:00)
[2020-10-14] MEDS ORDERED: ACETAMINOPHEN 325 MG TABLET PO PRN (23:00)
[2020-10-14] MEDS ORDERED: MORPHINE SULFATE INJ 2 MG/ML DISP.SYRIN IV PRN (23:00)
[2020-10-14] MEDS ORDERED: SODIUM POLYSTYRENE SULFONATE 15 G/60 ML BOTTLE PO ONE (23:00)
[2020-10-14] MEDS ORDERED: Z GUARD REMEDY 2 OZ OINT TP PRN (23:00)
[2020-10-14] MEDS ORDERED: ONDANSETRON HCL/PF 4 MG/2 ML VIAL IVP PRN (23:00)
[2020-10-14] MEDS ORDERED: ASPIRIN 325 MG TABLET PO ONE (23:00)
[2020-10-14] MEDS ORDERED: ZOLPIDEM TARTRATE 5 MG TABLET PO PRN (23:30)
[2020-10-14] MEDS ORDERED: HEPARIN SODIUM, PORCINE 5000 UNITS/1 ML VIAL ONE (23:35)
[2020-10-14] MEDS ORDERED: ASPIRIN 325 MG TABLET ONE (23:35)
[2020-10-14] MEDS ORDERED: SODIUM POLYSTYRENE SULFONATE 15 G/60 ML BOTTLE ONE (23:35)
[2020-10-14] MEDS: HEPARIN SODIUM, PORCINE 5000 UNITS/1 ML VIAL SQ SCH (23:55)
[2020-10-14 23:59] LABS: CALCIUM, SERUM 8.2 mg/dL (8.5-10.1); CARBON DIOXIDE 15 mmol/L (21-32); CHLORIDE 96 mmol/L (98-107); CREATININE 1.6 mg/dL (0.6-1.3); SODIUM SERUM 125 mmol/L (136-145)
[2020-10-15] MEDS ORDERED: PIPERACILLIN /TAZOBACTAM 3.375 G in IV D5W 50 ML IV SCH ×2
[2020-10-15 00:04] LABS: GLUCOSE 477 mg/dL (74-106); POTASSIUM 6.4 mmol/L (3.5-5.1); UREA NITROGEN, BLOOD 103 mg/dL (7-18)
[2020-10-15] MEDS: FUROSEMIDE 40 MG/4 ML VIAL IV ONE ×2 (00:20→01:20)
[2020-10-15] MEDS: INSULIN REGULAR, HUMAN 100 UNIT/ML 10 ML VIAL IV ONE ×2 (00:21→01:21)
[2020-10-15] MEDS: CALCIUM CHLORIDE 1,000 MG/10 ML DISP.SYRIN IV ONE ×2 (00:22→01:22)
[2020-10-15] MEDS ORDERED: FUROSEMIDE 40 MG/4 ML VIAL ONE (00:58)
[2020-10-15] MEDS ORDERED: CALCIUM CHLORIDE 1,000 MG/10 ML DISP.SYRIN ONE ×2 (00:58→01:02)
[2020-10-15] MEDS: BLOOD SUGAR DIAGNOSTIC 1 EACH STRIP IN SCH ×6 (01:05→22:12)
[2020-10-15] MEDS: IV NS 0.9% 1,000 ML IV PRN (01:28)
--- NOTE | 2020-10-15 02:03 | NUR ---
PT RESTING COMFORTABLY IN BED. VITAL SIGNS STABLE. WILL CONTINUE TO MONITOR
[2020-10-15 03:47] LABS: BASOPHILS % (AUTO) 0.2 % (0.0-2.0); EOSINOPHILS % (AUTO) 0.1 % (0.0-6.0); HEMATOCRIT 44 % (33-45); HEMOGLOBIN 14.2 g/dL (11.5-14.8); LYMPHOCYTES # (AUTO) 0.6 /CMM (0.8-4.8); LYMPHOCYTES % (AUTO) 2.8 % (20.0-44.0); MEAN CORPUSCULAR HGB CONC 32 g/dl (31.0-36.0); MEAN CORPUSCULAR VOLUME 93 fL (82-100); MONOCYTES # (AUTO) 1.6 /CMM (0.1-1.30); MONOCYTES % (AUTO) 7.6 % (2.0-12.0); NEUTROPHILS % (AUTO) 89.3 % (43.0-81.0); PLATELET COUNT (AUTO) 172 /CMM (150-450); RED BLOOD CELL COUNT(AUTO) 4.69 MIL/uL (4.0-5.2); WHITE BLOOD COUNT (AUTO) 21.3 K/uL (4.3-11.0)
[2020-10-15 04:03] LABS: ALANINE AMINOTRANSFERASE 753 U/L (12-78); ALBUMIN 2.7 g/dL (3.4-5.0); ALKALINE PHOSPHATASE 194 U/L (46-116); ASPARTATE AMINOTRANSFERASE 131 U/L (15-37); BILIRUBIN,DIRECT 0.8 mg/dL (0.0-0.2); BILIRUBIN,TOTAL 1.2 mg/dL (0.2-1.0); CALCIUM, SERUM 9.3 mg/dL (8.5-10.1); CARBON DIOXIDE 17 mmol/L (21-32); CHLORIDE 97 mmol/L (98-107); CREATININE 1.7 mg/dL (0.6-1.3); MAGNESIUM 2.4 mg/dL (1.8-2.4); PHOSPHORUS 3.6 mg/dL (2.5-4.9); POTASSIUM 5.7 mmol/L (3.5-5.1); SODIUM SERUM 127 mmol/L (136-145); TOTAL PROTEIN, SERUM 5.3 g/dL (6.4-8.2)
[2020-10-15 04:09] LABS: GLUCOSE 428 mg/dL (74-106)
[2020-10-15 04:10] LABS: UREA NITROGEN, BLOOD 100 mg/dL (7-18)
[2020-10-15] MEDS ORDERED: PIPERACILLIN /TAZOBACTAM 3.375 G VIAL IV ONE (04:22)
[2020-10-15] MEDS ORDERED: PIPERACILLIN /TAZOBACTAM 3.375 G in IV D5W 50 ML IV ONE (05:00)
--- NOTE | 2020-10-15 05:55 | NUR ---
PT CLEANED, CHANGED, AND REPOSITIONS. VITAL SIGNS STABLE. RESTING COMFORTABLY IN BED, STILL ON CONTINOUS HIDE AND SKIN COLERER AND PULSE OX, WILL CONTINUE TO MONITOR
[2020-10-15] MEDS: INSULIN REGULAR, HUMAN 100 UNIT/ML 3 ML VIAL SQ PRN ×3 (06:10→14:16)
--- NOTE | 2020-10-15 07:11 | NUR ---
REPORT GIVEN TO YOBANY MAGUIRE FOR PUJA
--- NOTE | 2020-10-15 07:39 | NUR ---
RN NOTES GOT A CALL FROM TING FOR A NEW ADMISSION. PT'S VITAL SIGN BP 140/61 WV 100 RR 18 SA02 100%. IV SITE ON THE R FOREARM #18.
--- NOTE | 2020-10-15 07:39 | NUR ---
Report given to Edmund HAYWOOD for brayan.
[2020-10-15] MEDS ORDERED: ASPI-1169 PO (07:43)
[2020-10-15] MEDS ORDERED: ALLA266C2 TP (07:43)
[2020-10-15] MEDS ORDERED: APIX5TAB PO (07:43)
[2020-10-15] MEDS ORDERED: BLOO-668 IN (07:43)
[2020-10-15] MEDS ORDERED: ACET-868 PO (07:43)
[2020-10-15] MEDS ORDERED: CEPH-570 PO (07:43)
[2020-10-15] MEDS ORDERED: INSU100V3 SQ (07:43)
[2020-10-15] MEDS ORDERED: HYDR-4384 PO (07:43)
--- NOTE | 2020-10-15 08:28 | NUR ---
wheeled patient via gurney accompanied by RN and emt in no distress. RN at bedside to assume care.
[2020-10-15] MEDS: HEPARIN SODIUM, PORCINE 5000 UNITS/1 ML VIAL SQ SCH ×2 (09:00→20:10)
--- NOTE | 2020-10-15 09:30 | NUR ---
RN NOTES PATIENT WAS BROUGHT TO HER ROOM VIA GURNEY. ASSESSED THE SKIN WITH THE WOUND CONSULT NURSE. PT WAS UNCOOPERATIVE. HAS MULTIPLE BRUISES AND TEAR ON THE SKIN, PHOTO TAKEN. HELD ANTICOAGULANT MED, NOTICED SOME SIGNS OF BLEEDING. OFFLOADED LOWER EXTREMITIES. WILL CONTINUE TO MONITOR.
--- NOTE | 2020-10-15 09:42 | NUR ---
WOUND CARE CONSULT: PT PRESENTS WITH MULTIPLE SKIN ISSUES INCLUDING RT EYEBROW STERI STRIP, WEEPING EDEMA TO LOWER LEGS WITH DISCOLORATION, DISCOLORED AREAS TO UPPER EXTREMITIES WITH SKIN TEARS TO LEFT ARM, DISCOLORATION TO RT HIP AREA AND SACRAL SCAR, ALL PRESENT ON ADMISSION. RECOMMENDATIONS MADE FOR SKIN PROTECTION AND WOUND CARE. DISCUSSED WITH NURSING STAFF. VERY DIFFICULT ASSESSMENT DUE TO PT AGITATED AND SCREAMING AT TIMES. PT IS INCONTINENT. PT IS ON [facility] LOW AIRLOSS BED. IN AGREEMENT WITH PLAN OF CARE. Addendum: 10/15/20 at 0944 by YOSHI WALKER WNDNU Amended: Links added.
[2020-10-15] MEDS: MULTIVIT W/MINERALS 1 TAB TABLET PO SCH (09:56)
--- NOTE | 2020-10-15 10:30 | NUR ---
RN NOTES PATIENT PULLED OUT HER IV. ATTEMPTED TO REINSERT BUT WASN'T SUCCESSFUL. INFORMED DR NG AND ORDERED FOR A MIDLINE INSERTION.
[2020-10-15 12:00] VITALS: BP 113/60
[2020-10-15] MEDS: PIPERACILLIN /TAZOBACTAM 2.25 G in IV D5W 50 ML IV SCH ×3 (12:00→23:32)
--- NOTE | 2020-10-15 14:00 | NUR ---
RN NOTES KEPT ON FOLLOWING UP FOR MIDLINE INSERTION, NO ONE IS AVAILABLE. INFORMED CHARGE NURSE HILARIO WELL.
[2020-10-15 16:00] VITALS: BP 107/56
--- NOTE | 2020-10-15 16:00 | NUR ---
RN NOTES 2 ZOSYN BAGS NOT ADMINISTERED. REASON IS NO IV LINE AVAILABLE. WILL CONTINUE FOLLOWING UP.
--- NOTE | 2020-10-15 19:30 | NUR ---
legal process specialist opening notes Received Pt from morning nurse. Pt is alert and orientedX1-2. Respiration is normal in room air. No SOB. No S/S of distress noted. Pt has no IV line. Will have midline insertion later per am nurse. Bilateral soft wrist restraints is intact, skin is warm to touch and circulation is check Q 2hr. Safety precautions is maintained. Bed at low position, brakes locked, side rails upX2, hob elevated and call light is within reach. Will continue to monitor.
--- NOTE | 2020-10-15 19:58 | NUR ---
[place] operator notes Called nursing call centre supervisor regarding midline insertion. Per nursing call centre supervisor, Midline nurse is coming tonight. Will continue to monitor.
--- NOTE | 2020-10-15 20:12 | NUR ---
RN CLOSING NOTES PATIENT IN BED. A/0 X1. B WRIST ON SOFT RESTRAINT. NO IV LINE INSERTED YET. SAFETY MEASURES MAINTAINED. BED IN LOWEST POSITION, LOCKED. SIDE RAILS UP X 3. CALL LIGHT WITHIN REACH. WILL ENDORSE TO METROLOGY ENGINEER FOR PUJA.
--- NOTE | 2020-10-15 20:30 | NUR ---
utilization reviewer notes Tried to inserted IV access but unsuccessful. Charge nurse is aware and informed. Midline nurse is coming.
[2020-10-15 20:40] VITALS: BP 102/61
--- NOTE | 2020-10-15 21:47 | NUR ---
business programmer notes Midline nurse YOBANY Davalos at the bedside.
--- NOTE | 2020-10-15 21:55 | NUR ---
videographer notes SHELLY midline# 18 is inserted by YOBANY Davalos.
--- NOTE | 2020-10-15 22:13 | NUR ---
marquetry worker notes Pt's blood sugar was 39 after second check. Pt blood sugar first time checked was 39. Pt's passed nursing swallow eval at the bedside. Gave Pt's apple juice, two milk with sugar but Pt's blood sugar remaining the same. Gave dextrose inj 50 ml as ordered for low blood sugar.
[2020-10-15] MEDS: VANCOMYCIN 500 MG in IV D5W 100 ML IV SCH (22:18)
--- NOTE | 2020-10-15 22:42 | NUR ---
tanning drum operator notes Pt's blood sugar is 156. Charge nurse is aware and informed. Will continue to monitor.
[2020-10-15] MEDS: HYDROCODONE/APAP 5/325MG TABLET PO PRN (23:00)
--- NOTE | 2020-10-15 23:00 | NUR ---
toll booth operator notes Pt's complaining of pain and requesting pain meds. Administered norco 5-325 mg/1 tab/po/prn as ordered for generalized pain. VS is stable. Safety precautions is maintained. Will continue to monitor.
[2020-10-16] VITALS: BP 105/58
[2020-10-16 00:11] VITALS: BP 105/58
[2020-10-16] MEDS: IV NS 0.9% 1,000 ML IV PRN ×2 (00:14→12:30)
[2020-10-16] MEDS: BLOOD SUGAR DIAGNOSTIC 1 EACH STRIP IN SCH ×6 (00:20→20:28)
[2020-10-16] MEDS: INSULIN REGULAR, HUMAN 100 UNIT/ML 3 ML VIAL SQ PRN ×4 (00:25→13:53)
[2020-10-16 04:26] VITALS: BP 133/46
[2020-10-16] MEDS: PIPERACILLIN /TAZOBACTAM 2.25 G in IV D5W 50 ML IV SCH ×3 (05:03→17:11)
[2020-10-16 06:04] LABS: BASOPHILS # (AUTO) 0.1 /CMM (0.0-0.2); BASOPHILS % (AUTO) 0.4 % (0.0-2.0); HEMATOCRIT 39 % (33-45); HEMOGLOBIN 12.8 g/dL (11.5-14.8); LYMPHOCYTES # (AUTO) 0.3 /CMM (0.8-4.8); LYMPHOCYTES % (AUTO) 1.5 % (20.0-44.0); MEAN CORPUSCULAR HGB CONC 33 g/dl (31.0-36.0); MEAN CORPUSCULAR VOLUME 91 fL (82-100); MONOCYTES # (AUTO) 0.7 /CMM (0.1-1.30); MONOCYTES % (AUTO) 3.1 % (2.0-12.0); NEUTROPHILS # (AUTO) 21.8 /CMM (1.8-8.9); PLATELET COUNT (AUTO) 140 /CMM (150-450); RED BLOOD CELL COUNT(AUTO) 4.21 MIL/uL (4.0-5.2); WHITE BLOOD COUNT (AUTO) 22.9 K/uL (4.3-11.0)
[2020-10-16 06:06] LABS: ALBUMIN 2.5 g/dL (3.4-5.0); BILIRUBIN,TOTAL 1.3 mg/dL (0.2-1.0); CALCIUM, SERUM 8.9 mg/dL (8.5-10.1); CREATININE 1.3 mg/dL (0.6-1.3); MAGNESIUM 2.3 mg/dL (1.8-2.4); PHOSPHORUS 3.1 mg/dL (2.5-4.9); POTASSIUM 4.2 mmol/L (3.5-5.1); TOTAL PROTEIN, SERUM 4.8 g/dL (6.4-8.2)
--- NOTE | 2020-10-16 06:59 | NUR ---
infertility nurse closing notes Pt is resting in bed comfortably. Pt is alert and orientedX1-2. Respiration is normal in room air. No SOB. No S/S of distress noted. Tele monitor showed aflutter with PVC Hr at 97. SHELLY midline# 18 is clean, intact and infusing well NS@ 75 ml/hr. VS is stable. Afebrile. Bilateral soft wrist restraints is intact, skin is warm to touch and circulation is check Q 2hr. Kept Pt clean, dry and comfortable. Safety precautions is maintained. Bed at low position, brakes locked, side rails upX2, hob elevated and call light is within reach. Will endorse to morning nurse for PUJA.
--- NOTE | 2020-10-16 07:20 | NUR ---
PHYSICAL THERAPY RESIDENT OPENING NOTES RECEIVED PT RESTING IN BED. A/O X1-2. NO SOB NOTED. IN NO APPARENT DISTRESS. SHELLY MIDLINE #18, INTACT, NS RUNNING @ 75 ML/HR. PROVIDED SAFETY MEASURES. BED IN LOWEST POSITION, BRAKES LOCKED. SIDE RAILS UP X2. CALL LIGHT WITHIN REACH. WILL CONTINUE PLAN OF CARE.
[2020-10-16 08:00] VITALS: BP 109/95
[2020-10-16] MEDS: MULTIVIT W/MINERALS 1 TAB TABLET PO SCH (09:26)
[2020-10-16] MEDS: HEPARIN SODIUM, PORCINE 5000 UNITS/1 ML VIAL SQ SCH ×2 (09:28→23:04)
[2020-10-16] MEDS ORDERED: Z GUARD REMEDY 2 OZ OINT TP PRN (11:30)
[2020-10-16] MEDS ORDERED: ACETAMINOPHEN 325 MG TABLET PO PRN (11:30)
[2020-10-16] MEDS ORDERED: ENSURE ENLIVE CHOC 237 ML CAN PO SCH (11:30)
[2020-10-16] MEDS ORDERED: HYDROCODONE/APAP 5/325MG TABLET PO PRN (11:30)
[2020-10-16] MEDS ORDERED: BLOOD SUGAR DIAGNOSTIC 1 EACH STRIP IN SCH (12:00)
[2020-10-16 15:38] LABS: D-DIMER 2.12 mg/L(FEU (0.17-0.50)
[2020-10-16 16:00] VITALS: BP 90/50
[2020-10-16] MEDS ORDERED: APIXABAN 5 MG TABLET PO SCH ×2 (17:00)
[2020-10-16] MEDS: GLUCERNA SHAKE 237 ML CAN PO SCH (17:00)
--- NOTE | 2020-10-16 18:14 | NUR ---
MS RN CLOSING NOTES PT IN BED. A/O X1-2. NO SOB NOTED. NO S/S OF RESPIRATORY DISTRESS. BOTH WRIST WITH SOFT RESTRAINT. SHELLY MIDLINE #18, INTACT, NS RUNNING @ 75 ML/HR. ROUTINE MEDS WERE GIVEN ORDERED. VERBALIZING THAT SHE'S DYING. PROVIDED TIME, CARE AND SAFETY MEASURES. BED IN LOWEST POSITION, BRAKES LOCKED. SIDE RAILS UP X2. CALL LIGHT WITHIN REACH. WILL ENDORSE TO GEOSPATIAL SCIENTIST FOR PUJA.
[2020-10-16 20:00] VITALS: BP 118/69
--- NOTE | 2020-10-16 20:29 | NUR ---
BLOOD SUGAR =116, NO COVERAGE.
[2020-10-16] MEDS: CEFEPIME 1 GM in IV D5W 50 ML IV SCH (23:02)
[2020-10-16] MEDS: HYDROCODONE/APAP 5/325MG TABLET PO PRN (23:28)
[2020-10-16] MEDS: VANCOMYCIN 500 MG in IV D5W 100 ML IV SCH (23:45)
[2020-10-17] MEDS: BLOOD SUGAR DIAGNOSTIC 1 EACH STRIP IN SCH ×6 (00:29→21:19)
--- NOTE | 2020-10-17 00:30 | NUR ---
BLOOD LSZFG=425,NO COVERAGE.
[2020-10-17] MEDS: IV NS 0.9% 1,000 ML IV PRN (02:58)
[2020-10-17] MEDS: INSULIN REGULAR, HUMAN 100 UNIT/ML 3 ML VIAL SQ PRN ×5 (05:54→21:19)
--- NOTE | 2020-10-17 07:33 | NUR ---
MS RN OPENING NOTES RECEIVED PT AWAKE IN BED IN NO ACUTE SIGNS OF DISTRESS. A/O X1-2. VERBALLY RESPONSIVE AND CONFUSED. QUIET AND APPEARS COMFORTABLE AT THIS TIME. B/L SOFT WRIST RESTRAINTS IN PLACE, GOOD PERIPHERAL PULSES NOTED. ON 02 VIA N/C AT 3LPM, TOLERATING WELL WITH NO SOB NOTED. SHELLY MIDLINE #18 INTACT WITH NS RUNNING @ 75 ML/HR. SAFETY MEASURES IN PLACE: BED IN LOWEST POSITION AND BRAKES LOCKED. SIDE RAILS UP X2. CALL LIGHT WITHIN REACH. WILL CONTINUE TO MONITOR PT.
[2020-10-17 08:00] VITALS: BP 153/77
[2020-10-17 08:11] LABS: BASOPHILS # (AUTO) 0.1 /CMM (0.0-0.2); BASOPHILS % (AUTO) 0.4 % (0.0-2.0); HEMATOCRIT 37 % (33-45); LYMPHOCYTES # (AUTO) 0.4 /CMM (0.8-4.8); LYMPHOCYTES % (AUTO) 1.5 % (20.0-44.0); MEAN CORPUSCULAR HGB CONC 32 g/dl (31.0-36.0); MEAN CORPUSCULAR VOLUME 92 fL (82-100); MONOCYTES # (AUTO) 1.4 /CMM (0.1-1.30); MONOCYTES % (AUTO) 4.8 % (2.0-12.0); NEUTROPHILS # (AUTO) 26.9 /CMM (1.8-8.9); NEUTROPHILS % (AUTO) 93.3 % (43.0-81.0); PLATELET COUNT (AUTO) 97 /CMM (150-450); RED BLOOD CELL COUNT(AUTO) 4.05 MIL/uL (4.0-5.2); WHITE BLOOD COUNT (AUTO) 28.8 K/uL (4.3-11.0)
[2020-10-17] MEDS: GLUCERNA SHAKE 237 ML CAN PO SCH ×2 (08:23→17:18)
[2020-10-17] MEDS: ASPIRIN 81 MG TAB.CHEW PO SCH (09:40)
[2020-10-17] MEDS: MULTIVIT W/MINERALS 1 TAB TABLET PO SCH (09:41)
[2020-10-17] MEDS: CEFEPIME 1 GM in IV D5W 50 ML IV SCH ×2 (09:41→22:00)
[2020-10-17] MEDS: HEPARIN SODIUM, PORCINE 5000 UNITS/1 ML VIAL SQ SCH ×2 (10:48→21:14)
[2020-10-17 11:10] LABS: CALCIUM, SERUM 8.8 mg/dL (8.5-10.1); CARBON DIOXIDE 15 mmol/L (21-32); CHLORIDE 103 mmol/L (98-107); CREATININE 1.6 mg/dL (0.6-1.3); GLUCOSE 267 mg/dL (74-106); MAGNESIUM 2.4 mg/dL (1.8-2.4); PHOSPHORUS 4.1 mg/dL (2.5-4.9); POTASSIUM 4.7 mmol/L (3.5-5.1); SODIUM SERUM 136 mmol/L (136-145); UREA NITROGEN, BLOOD 76 mg/dL (7-18)
[2020-10-17] MEDS: HYDROCODONE/APAP 5/325MG TABLET PO PRN (12:42)
--- NOTE | 2020-10-17 12:49 | NUR ---
RN NOTES PT SCREAMING, MOANING AND C/O GENERALIZED PAIN, PRN NORCO 5/325 MG PO GIVEN TA 1242. WILL CONTINUE TO MONITOR AND REASSESS PT.
[2020-10-17 13:17] LABS: BAND % (MANUAL) 2 % (0.0-5.0); LYMPHOCYTES % (MANUAL) 2 % (16-48); MONOCYTES % (MANUAL) 2 % (0-11.0); NEUTROPHILS % (MANUAL) 94 (42-76)
[2020-10-17 13:56] LABS: ALBUMIN 2.2 g/dL (3.4-5.0); BILIRUBIN,DIRECT 0.8 mg/dL (0.0-0.2); BILIRUBIN,TOTAL 1.7 mg/dL (0.2-1.0); TOTAL PROTEIN, SERUM 4.5 g/dL (6.4-8.2)
[2020-10-17 16:00] VITALS: BP 92/54
--- NOTE | 2020-10-17 17:42 | NUR ---
RN NOTES PT FOR ULTRASOUND OF ABDOMEN COMPLETE TOMORROW MORNING. NPO POST MIDNIGHT TO BE ENFORCED. WILL ENDORSE TO NEXT SHIFT RN.
--- NOTE | 2020-10-17 18:42 | NUR ---
MS RN CLOSING NOTES PATIENT IN BED ASLEEP AT THIS TIME, EASILY AWAKENS. HOB ELEVATED. A/O X1-2. VERBALLY RESPONSIVE AND CONFUSED. EMOTIONAL SUPPORT GIVEN AND ALL NEEDS/CARE WELL ATTENDED. PT WITH B/L SOFT WRIST RESTRAINTS IN PLACE, GOOD PERIPHERAL PULSES NOTED. ON 02 VIA N/C AT 3LPM, TOLERATING WELL WITH NO SOB NOTED. SHELLY MIDLINE #18 INTACT, PATENT AND FLUSHES WELL. SAFETY MEASURES IN PLACE: BED IN LOWEST POSITION AND BRAKES LOCKED. SIDE RAILS UP X2 AND CALL LIGHT WITHIN REACH. WILL ENDORSE TO MIDDLE OR INTERMEDIATE SCHOOL PRINCIPAL NURSE FOR PUJA.
--- NOTE | 2020-10-17 19:30 | NUR ---
MS PRASHANTH INITIAL NOTES Received Pt from morning nurse. Pt is alert and orientedX1-2. Respiration is even and unlabored not in any acute distress noted. No SOB on O2 at 2liters via nasal canula. patient has Midline on her right upper arm patent and intact. Bilateral soft wrist restraints on both hands , skin is warm to touch and circulation is check Q 2hr. Safety precautions is maintained. Aspiration precaution implemented and observed. Bed at low position, brakes locked, side rails upX2, hob elevated and call light is within reach. Will continue to monitor.
[2020-10-17 20:00] VITALS: BP 90/43
--- NOTE | 2020-10-17 21:20 | NUR ---
ms machine rope maker notes blood sugar checked 125, no insulin due at this time, no signs of hypo glycemia noted. due meds also administered. will continue monitoring.
[2020-10-18] MEDS: VANCOMYCIN 500 MG in IV D5W 100 ML IV SCH (01:01)
--- NOTE | 2020-10-18 01:02 | NUR ---
ROLF LIGHT TROUGH 20. [facility] NOTIFIED. WILL REPEAT TROUGH AGUSTIN OCT 18. WILL ADMINISTER DOSE.
[2020-10-18] MEDS: BLOOD SUGAR DIAGNOSTIC 1 EACH STRIP IN SCH ×6 (01:05→21:30)
[2020-10-18] MEDS: INSULIN REGULAR, HUMAN 100 UNIT/ML 3 ML VIAL SQ PRN ×6 (01:14→22:25)
--- NOTE | 2020-10-18 05:14 | NUR ---
ms residential caregiver notes blood sugar checked done 141, 2 units of insulin given as ordered. no signs of hypo/hyper glycemia noted. pt remain sleeping but noticed moved her arm once in a while trying to removed his O2. will continue monitoring.
--- NOTE | 2020-10-18 06:58 | NUR ---
MS REAL ESTATE LEASING MANAGER CLOSING NOTES PT AWAKE AND ALERT ONLY TO HER NAME. SCREAM ON AND OFF BUT NO SIGNS OF ANY ACUTE DISTRESS NOTED. ALL DUE MEDS GIVEN. MORNING CARE RENDERED WELL WOUND CARE TREATMENT. REPOSITION HER FOR COMFORT. PT BLOOD SUGAR 96, NO SIGNS OF HYPO GLYCEMIA NOTED. KEPT HER WARM AND COMFORTABLE AT ALL TIMES. BED IN LOW AND LOCK IN POSITION WITH SIDE RAILS X2 UP. PT STILL ON SOFT WRIST RESTRAINT FOR SAFETY. SKIN WARM AND PULSE PRESENT. WILL ENDORSE TO AM NURSE FOR CONTINUITY OF CARE.
--- NOTE | 2020-10-18 07:32 | NUR ---
MS RN OPENING NOTES RECEIVED PT AWAKE IN BED IN NO ACUTE SIGNS OF DISTRESS. A/O X1-2. ABLE TO MAKE NEEDS KNOWN, DENIES PAIN AT THIS TIME. B/L SOFT WRIST RESTRAINTS IN PLACE, GOOD PERIPHERAL PULSES NOTED. ON 02 VIA N/C AT 3LPM, TOLERATING WELL WITH NO SOB NOTED. SHELLY MIDLINE #18 INTACT, PATENT AND FLUSHES WELL. SAFETY MEASURES IN PLACE: BED IN LOWEST POSITION AND BRAKES LOCKED. SIDE RAILS UP X2. CALL LIGHT WITHIN REACH. WILL CONTINUE TO MONITOR PT.
[2020-10-18 08:00] VITALS: BP 90/60
[2020-10-18] MEDS: ASPIRIN 81 MG TAB.CHEW PO SCH (08:17)
[2020-10-18] MEDS: MULTIVIT W/MINERALS 1 TAB TABLET PO SCH (08:17)
[2020-10-18] MEDS: GLUCERNA SHAKE 237 ML CAN PO SCH ×2 (08:17→17:09)
[2020-10-18] MEDS: HEPARIN SODIUM, PORCINE 5000 UNITS/1 ML VIAL SQ SCH ×2 (08:18→21:43)
[2020-10-18] MEDS: CEFEPIME 1 GM in IV D5W 50 ML IV SCH (09:09)
--- NOTE | 2020-10-18 10:05 | NUR ---
During interdisciplinary team, ADAM was made aware patient needs a psych consult. ADAM faxed facesheet to [facility] unit [phone]. Order was placed in [facility] by patient's physician BENNY Meyer. SW remains available for all needs regarding this patient.
[2020-10-18 15:55] VITALS: BP 92/55
[2020-10-18 17:44] LABS: BASOPHILS % (AUTO) 0.1 % (0.0-2.0); EOSINOPHILS % (AUTO) 0.6 % (0.0-6.0); HEMATOCRIT 39 % (33-45); HEMOGLOBIN 12.4 g/dL (11.5-14.8); LYMPHOCYTES # (AUTO) 1.3 /CMM (0.8-4.8); LYMPHOCYTES % (AUTO) 3.6 % (20.0-44.0); MEAN CORPUSCULAR HGB CONC 32 g/dl (31.0-36.0); MEAN CORPUSCULAR VOLUME 93 fL (82-100); MONOCYTES # (AUTO) 0.8 /CMM (0.1-1.30); MONOCYTES % (AUTO) 2.4 % (2.0-12.0); NEUTROPHILS # (AUTO) 33.2 /CMM (1.8-8.9); NEUTROPHILS % (AUTO) 93.3 % (43.0-81.0); PLATELET COUNT (AUTO) 98 /CMM (150-450); RED BLOOD CELL COUNT(AUTO) 4.14 MIL/uL (4.0-5.2)
[2020-10-18 18:00] LABS: CALCIUM, SERUM 9.1 mg/dL (8.5-10.1); CARBON DIOXIDE 17 mmol/L (21-32); CHLORIDE 106 mmol/L (98-107); CREATININE 1.7 mg/dL (0.6-1.3); GLUCOSE 160 mg/dL (74-106); MAGNESIUM 2.5 mg/dL (1.8-2.4); PHOSPHORUS 2.8 mg/dL (2.5-4.9); SODIUM SERUM 137 mmol/L (136-145)
[2020-10-18 18:12] LABS: WHITE BLOOD COUNT (AUTO) 35.6 K/uL (4.3-11.0)
--- NOTE | 2020-10-18 18:20 | NUR ---
RN NOTES RECEIVED CALL FROM LAB PILI PEREZ THAT PT HAS CRITICAL HIGH WBC 35.6, BENNY PRAJAPATI MADE AWARE AND STATED THAT ID IS FOLLOWING PT. WILL CONTINUE TO MONITOR. Addendum: 10/18/20 at 1831 by BRAYAN ALDRIDGE RN ADENELOISEM: REPORTED TO ID BENNY MEADE REGARDING WBC 35.6 AND SHE SAID THAT SHE WILL COME TO SEE PT.
--- NOTE | 2020-10-18 18:43 | NUR ---
MS RN CLOSING NOTES PATIENT IN BED ASLEEP AT THIS TIME, EASILY AWAKENS. PT IS A/O X1-2. VERBALLY RESPONSIVE AND CONFUSED. EMOTIONAL SUPPORT GIVEN AND ALL NEEDS/CARE WELL ATTENDED. ON 02 VIA N/C AT 3LPM, TOLERATING WELL WITH NO SOB NOTED. SHELLY MIDLINE #18 INTACT, PATENT AND FLUSHES WELL. SAFETY MEASURES IN PLACE: BED IN LOWEST POSITION AND BRAKES LOCKED. SIDE RAILS UP X2 AND CALL LIGHT WITHIN REACH. WILL ENDORSE TO PROFESSOR OF LATIN [employer] STUDIES NURSE FOR PUJA.
[2020-10-18 18:44] LABS: UREA NITROGEN, BLOOD 91 mg/dL (7-18)
--- NOTE | 2020-10-18 19:30 | NUR ---
ms yecenia initial notes received report from am nurse and seen pt sleeping at this time but responsive , no acute distress noted. respiration even and unlabored with o2 at 3 liters via nasal canula. skin warm and dry to touch. with dressing on both arms . kept her warm and comfortable at all times. will continue monitoring,.
[2020-10-18 20:45] LABS: BAND % (MANUAL) 4 % (0.0-5.0); LYMPHOCYTES % (MANUAL) 2 % (16-48); MONOCYTES % (MANUAL) 2 % (0-11.0); NEUTROPHILS % (MANUAL) 92 (42-76)
[2020-10-18] MEDS ORDERED: MEROPENEM 500 MG in IV NS 0.9% 50 ML IV SCH (21:00)
[2020-10-18] MEDS: MEROPENEM 1 G in IV NS 0.9% 100 ML IV SCH (21:10)
--- NOTE | 2020-10-18 21:30 | NUR ---
ms laminating machine operator helper notes blood sugar checked done 141, 2 units of insulin given as ordered. no signs of hypo/hyper glycemia noted. pt remain sleeping but noticed moved her arm once in a while trying to removed his O2. will continue monitoring.
[2020-10-18] MEDS: MIRTAZAPINE 15 MG TABLET PO SCH ×2 (22:00→22:17)
[2020-10-19] VITALS (56 sets, daily range): BP systolic 47–139; BP diastolic 27–85
[2020-10-19] MEDS: BLOOD SUGAR DIAGNOSTIC 1 EACH STRIP IN SCH ×6 (01:00→22:05)
--- NOTE | 2020-10-19 01:00 | NUR ---
ms metal fence erector notes checked pt she's asleep , breathing even and unlabored , blood sugar 124, no insulin due at this time. hob elevated at all times. kept her warm and comfortable at all times. reposition her for comfort.
[2020-10-19] MEDS: INSULIN REGULAR, HUMAN 100 UNIT/ML 3 ML VIAL SQ PRN ×2 (02:26→22:47)
--- NOTE | 2020-10-19 04:20 | NUR ---
ms yecenia notes we started doing our morning care and at the same time , preparing her dee to be inserted but noticed pt not responding , not even moaning when we moving her.side to side . we called the charged nurse to re-checked , vital signs taken 47/27, heart rate 60, skin warm to touch , O2 sat 85, then decided to called Rapid Response.
--- NOTE | 2020-10-19 04:23 | NUR ---
ms yecenia notes SUPERVISOR INSPECTION AND TESTING team arrived headed by USER EXPERIENCE TEAM LEAD Daren, RT Red, Zo, Keysha ,Minoo, Cris and scotty. Give information regarding what happened and and pt history as well. Stat lab, Chest X-ray and ABG ordered. Chair And Couch Maker Val also came. Vital signs checked 51/27, heart rate 84, blood sugar 124 04:35, call center supervisor called grandson , Levophed started . 04:40 no blood pressure ,500 Ns bolus given . 04:41 re-checked BP 102/40 pt still un-responsive Sinus Rhythm on tele monitor. 04:45 blood pressure 119/66 , placed call to Dr Pimentel . 04:55 chest ray tech came to do X-ray . then transferred the patient to ICU by ACLS protocol . 05:55 Dr Pimentel called back . spoke to him and relay to him that patient transferred to ICU.
[2020-10-19] MEDS ORDERED: NOREPINEPHRINE 8MG/250ML RTU 250 ML IV ONE (04:36)
[2020-10-19] MEDS: NOREPINEPHRINE 8 MG in IV NS 0.9% 242 ML IV PRN ×3 (04:45→15:49)
--- NOTE | 2020-10-19 04:58 | NUR ---
RT RT'S RESPONDED TO RAPID RESPONSE, PT PLACED ON NRB AND TRANSPORTED TO ICU RM 263. RT ON STANDBY, READY FOR INTUBATION. ABG OBTAINED AND READBACK TO THELMA HAYWOOD.
--- NOTE | 2020-10-19 05:02 | NUR ---
ROAD CONSULTANT RCD PT FROM [facility] LPN. PER REPORT PT FOUND TO BE UNRESPOSIVE UNABLE TO READ BP. LEVOPHED STARTED AT 0.1 MCG/KG/MIN. ON ARRIVAL TO ICU PT ON NON REBREATHER; LEVO 0.2. MULTIPLE SKIN TEARS NOTED. NSR ON MONITOR. TEMP NOTED TO BE 94.2. SHERRI HUGGER PLACED.
[2020-10-19 05:03] LABS: ABG BASE EXCESS -9.9 mmol/L; ABG OXYGEN SATURATION 99.2 % (92.0-98.5); ABG PCO2 28.5 mmHg (35.0-45.0); ABG PH 7.329 (7.350-7.450); ABG PO2 225.9 mmHg (75.0-100.0); AaDO2 458.6 mmHg; COHb 0.7 % (0.5-1.5); MetHb 0.1 % (0.0-1.5); O2Hb 98.4 % (94.0-97.0); SITE, ABG Right Brachial; VENT MODE, BG 15 LNRB
[2020-10-19 05:26] LABS: BASOPHILS % (AUTO) 0.1 % (0.0-2.0); EOSINOPHILS % (AUTO) 0.9 % (0.0-6.0); HEMATOCRIT 39 % (33-45); HEMOGLOBIN 12.5 g/dL (11.5-14.8); LYMPHOCYTES # (AUTO) 0.7 /CMM (0.8-4.8); LYMPHOCYTES % (AUTO) 2.3 % (20.0-44.0); MEAN CORPUSCULAR HGB CONC 32 g/dl (31.0-36.0); MEAN CORPUSCULAR VOLUME 92 fL (82-100); MONOCYTES % (AUTO) 3.3 % (2.0-12.0); NEUTROPHILS # (AUTO) 29.4 /CMM (1.8-8.9); NEUTROPHILS % (AUTO) 93.4 % (43.0-81.0); PLATELET COUNT (AUTO) 96 /CMM (150-450); RED BLOOD CELL COUNT(AUTO) 4.23 MIL/uL (4.0-5.2)
--- NOTE | 2020-10-19 05:30 | NUR ---
SUPERVISOR SLITTING AND SHIPPING ABG RESULTS pH 7.329, PCO2 28.5, PO2 225.9, BICARB 14.[address] ARREOLA. NO NEW ORDERS RECEIVED.
[2020-10-19 05:31] LABS: WHITE BLOOD COUNT (AUTO) 31.5 K/uL (4.3-11.0)
[2020-10-19 05:39] LABS: ALANINE AMINOTRANSFERASE 277 U/L (12-78); ALBUMIN 1.8 g/dL (3.4-5.0); ALKALINE PHOSPHATASE 179 U/L (46-116); ASPARTATE AMINOTRANSFERASE 44 U/L (15-37); BILIRUBIN,TOTAL 1.1 mg/dL (0.2-1.0); CARBON DIOXIDE 14 mmol/L (21-32); CHLORIDE 106 mmol/L (98-107); CREATININE 2.2 mg/dL (0.6-1.3); GLUCOSE 143 mg/dL (74-106); POTASSIUM 4.6 mmol/L (3.5-5.1); SODIUM SERUM 138 mmol/L (136-145); TOTAL PROTEIN, SERUM 4.5 g/dL (6.4-8.2)
[2020-10-19 05:40] LABS: ALBUMIN 1.8 g/dL (3.4-5.0); BILIRUBIN,DIRECT 0.6 mg/dL (0.0-0.2); BILIRUBIN,TOTAL 1.1 mg/dL (0.2-1.0); TOTAL PROTEIN, SERUM 4.5 g/dL (6.4-8.2)
[2020-10-19 05:47] LABS: UREA NITROGEN, BLOOD 98 mg/dL (7-18)
--- NOTE | 2020-10-19 06:00 | NUR ---
PHP WEB DEVELOPER PTS DI DALEY, DECISION MAKER, WOULD LIKE OT TO BE DNR/DNI. PAGED DR ARREOLA.
[2020-10-19 06:01] LABS: MAGNESIUM 2.4 mg/dL (1.8-2.4); PHOSPHORUS 3.5 mg/dL (2.5-4.9)
--- NOTE | 2020-10-19 07:10 | NUR ---
ICU OPENING NOTES RECEIVED PT IN BED, UNRESPONSIVE. LEVOPHED RUNNING @0.4 MCG/KG/MIN. ON NON REBREATHER MASK, SPO2 @98%. MULTIPLE SKIN TEARS NOTED. NSR ON MONITOR. TEMP OF 95. SHERRI HUGGER PLACED. DNR/DNI STATUS. SAFETY MEASURES IN PLACE. CALL LIGHT WITHIN REACH. BED LOCKED AND AT LOWEST POSITION WITH SIDE RAILS UP X2. WILL CONTINUE TO MONITOR.
[2020-10-19] MEDS: GLUCERNA SHAKE 237 ML CAN PO SCH ×2 (08:00→16:30)
[2020-10-19] MEDS: MULTIVIT W/MINERALS 1 TAB TABLET PO SCH (08:58)
[2020-10-19] MEDS: ASPIRIN 81 MG TAB.CHEW PO SCH (08:58)
[2020-10-19] MEDS: HEPARIN SODIUM, PORCINE 5000 UNITS/1 ML VIAL SQ SCH ×2 (08:59→22:00)
[2020-10-19] MEDS: MEROPENEM 1 G in IV NS 0.9% 100 ML IV SCH ×2 (09:04→21:59)
[2020-10-19] MEDS: HYDROCORTISONE SOD SUCCINATE 100 MG/2 ML VIAL IV SCH ×3 (10:47→22:00)
[2020-10-19] MEDS ORDERED: VANCOMYCIN 500 MG in IV D5W 100 ML IV SCH (11:00)
--- NOTE | 2020-10-19 18:50 | NUR ---
ICU CLOSING NOTES PT RESTING IN BED, STILL UNRESPONSIVE. LEVOPHED RUNNING @1 MCG/KG/MIN. ON NON REBREATHER MASK, SPO2 @92%. DNR/DNI STATUS. SAFETY MEASURES IN PLACE. CALL LIGHT WITHIN REACH. BED LOCKED AND AT LOWEST POSITION WITH SIDE RAILS UP X2. WILL ENDORSE TO NIGHT NURSE FOR PUJA.
[2020-10-19] MEDS: NOREPINEPHRINE 32 MG in IV NS 0.9% 218 ML IV PRN (19:09)
--- NOTE | 2020-10-19 19:15 | NUR ---
MANAGER INSTALLATION: RECEIVED ON NON-REBREATHER MASK WT 02 SAT 84% WT LABORED BREATHING. OBTAINED ORDER FOR STAT ABG. ON LEVOPHED MAX. DOSE RATE AT 1MCG/KG/MIN WT SBP LESS THAN 80. WILL OBTAIN ORDER FOR 2ND PRESSOR. AWAITING MD CALL BACK.
[2020-10-19] MEDS: IV D5/ 0.9% NACL 1,000 ML IV PRN (20:13)
--- NOTE | 2020-10-19 20:38 | NUR ---
RT NOTE PLACED PT ON BIPAP WITH CURRENT SETTINGS OF 15/5, 16, 100%. MASK SECURED WITH MEPILEX. BIPAP PLUGGED TO RED OUTLET. ALARMS ON AND AUDIBLE. PT TOLERATING WELL. SPO2 IMPROVED TO 98%. WILL CONTINUE TO MONITOR CLOSELY. YOBANY SANTIAGO @ BEDSIDE. Addendum: 10/19/20 at 2038 by LEENA GONZALEZ RT Amended: Links added.
[2020-10-19 21:43] LABS: ABG BASE EXCESS -12.8 mmol/L; ABG PCO2 25.5 mmHg (35.0-45.0); ABG PO2 147.6 mmHg (75.0-100.0); AaDO2 539.9 mmHg; COHb 0.7 % (0.5-1.5); MetHb 0.1 % (0.0-1.5); O2Hb 98.2 % (94.0-97.0); SITE, ABG Left Femoral
[2020-10-19] MEDS ORDERED: SODIUM BICARBONATE SYR 50 MEQ/50 ML DISP.SYRIN IV ONE (22:30)
[2020-10-19] MEDS: PHENYLEPHRINE 100 MG in IV NS 0.9% 240 ML IV PRN (22:50)
[2020-10-20] VITALS (60 sets, daily range): BP systolic 58–153; BP diastolic 38–107
[2020-10-20 01:14] LABS: ABG BASE EXCESS -10.8 mmol/L; ABG OXYGEN SATURATION 99.2 % (92.0-98.5); ABG PCO2 23.9 mmHg (35.0-45.0); ABG PH 7.348 (7.350-7.450); ABG PO2 159.1 mmHg (75.0-100.0); AaDO2 386.2 mmHg; COHb 0.6 % (0.5-1.5); MetHb 0.2 % (0.0-1.5); O2Hb 98.4 % (94.0-97.0); SITE, ABG Left Femoral
[2020-10-20] MEDS: BLOOD SUGAR DIAGNOSTIC 1 EACH STRIP IN SCH ×6 (01:31→21:31)
[2020-10-20] MEDS ORDERED: SODIUM BICARBONATE SYR 50 MEQ/50 ML DISP.SYRIN IV ONE (02:00)
[2020-10-20] MEDS: INSULIN REGULAR, HUMAN 100 UNIT/ML 3 ML VIAL SQ PRN ×3 (02:09→21:29)
[2020-10-20] MEDS: IV D5/ 0.9% NACL 1,000 ML IV PRN ×2 (06:37→17:28)
--- NOTE | 2020-10-20 07:00 | NUR ---
NURSERY SCHOOL TEACHER: MAX. DOSE RATE ON LEVO AT 1MCG/KG/MIN, RALPH. AT 3MCG/KG/MIN AND CONTINUE ON D5NS AT 100ML/HR. BIPAP NOW AT 50% FI02. TOTAL OF 2 AMPS BICARB GIVEN DURING THE SHIFT. SHERRI HUGGER IN PLACE FOR RECTAL TEMP. OF 96.8. ENDORSED TO DAY SHIFT TO ADMINISTER SOLU CORTEF [facility]
[2020-10-20] MEDS: NOREPINEPHRINE 32 MG in IV NS 0.9% 218 ML IV PRN ×2 (07:07→18:26)
--- NOTE | 2020-10-20 07:30 | NUR ---
RN OPENING NOTE RECEIVED PATIENT IN BED, ON BIPAP MACHINE. PATIENT UNAROUSABLE. PATIENT CURRENTLY ON MAX DOSE OF LEVOPHED AND RALPH WITH CONT. HYPOTENSION PATIENT HAS A SHELLY MIDLINE AND A R EXT JUG INTACT AND PATENT. IV FLUIDS RUNNING D5W NS @ 100MML/HR. PRESSLEY CATHETER IN PLACE. ALL SAFETY MEASURES IN PLACE PER HOSPITAL POLICY. BED ALARM ON, HEAD OF BED ELEVATED, BED LOCKED IN LOWEST POSITION WITH SIDE RAILS UP CALL LIGHT WITHIN REACH OF PATIENT. WILL CONT TO MONITOR AND PROVIDE TREATMENT.
[2020-10-20] MEDS: GLUCERNA SHAKE 237 ML CAN PO SCH ×2 (08:00→16:24)
[2020-10-20] MEDS: HYDROCORTISONE SOD SUCCINATE 100 MG/2 ML VIAL IV SCH ×3 (08:21→21:19)
[2020-10-20] MEDS: MEROPENEM 1 G in IV NS 0.9% 100 ML IV SCH ×2 (08:21→21:20)
[2020-10-20] MEDS: ASPIRIN 81 MG TAB.CHEW PO SCH (08:39)
[2020-10-20] MEDS: MULTIVIT W/MINERALS 1 TAB TABLET PO SCH (08:40)
--- NOTE | 2020-10-20 09:06 | NUR ---
0900 accucheck insulin coverage held due to patient's NPO status
[2020-10-20 09:08] LABS: BASOPHILS # (AUTO) 0.2 /CMM (0.0-0.2); BASOPHILS % (AUTO) 0.6 % (0.0-2.0); EOSINOPHILS % (AUTO) 0.1 % (0.0-6.0); HEMATOCRIT 40 % (33-45); HEMOGLOBIN 12.9 g/dL (11.5-14.8); LYMPHOCYTES # (AUTO) 0.2 /CMM (0.8-4.8); LYMPHOCYTES % (AUTO) 0.5 % (20.0-44.0); MEAN CORPUSCULAR HGB CONC 32 g/dl (31.0-36.0); MEAN CORPUSCULAR VOLUME 92 fL (82-100); MONOCYTES # (AUTO) 1.2 /CMM (0.1-1.30); MONOCYTES % (AUTO) 3.7 % (2.0-12.0); NEUTROPHILS # (AUTO) 31.6 /CMM (1.8-8.9); NEUTROPHILS % (AUTO) 95.1 % (43.0-81.0); PLATELET COUNT (AUTO) 89 /CMM (150-450); RED BLOOD CELL COUNT(AUTO) 4.38 MIL/uL (4.0-5.2)
[2020-10-20 09:11] LABS: WHITE BLOOD COUNT (AUTO) 33.3 K/uL (4.3-11.0)
[2020-10-20] MEDS: HEPARIN SODIUM, PORCINE 5000 UNITS/1 ML VIAL SQ SCH ×2 (09:13→21:40)
[2020-10-20 09:22] LABS: CALCIUM, SERUM 7.5 mg/dL (8.5-10.1); CARBON DIOXIDE 16 mmol/L (21-32); CHLORIDE 116 mmol/L (98-107); CREATININE 2.2 mg/dL (0.6-1.3); MAGNESIUM 2.4 mg/dL (1.8-2.4); PHOSPHORUS 3.8 mg/dL (2.5-4.9); POTASSIUM 4.7 mmol/L (3.5-5.1); SODIUM SERUM 147 mmol/L (136-145)
[2020-10-20 09:27] LABS: GLUCOSE 391 mg/dL (74-106); UREA NITROGEN, BLOOD 100 mg/dL (7-18)
[2020-10-20 10:27] LABS: D-DIMER 10.91 mg/L(FEU (0.17-0.50)
[2020-10-20] MEDS: PHENYLEPHRINE 100 MG in IV NS 0.9% 240 ML IV PRN (12:30)
[2020-10-20 13:19] LABS: BAND % (MANUAL) 4 % (0.0-5.0); LYMPHOCYTES % (MANUAL) 1 % (16-48); MONOCYTES % (MANUAL) 3 % (0-11.0); NEUTROPHILS % (MANUAL) 92 (42-76)
--- NOTE | 2020-10-20 19:00 | NUR ---
RECEIVED PATIENT ,UNRESPONSIVE,DNR/DNI STATUS , ON BIPAP 15/5, BREATHING LABORED AND TACHYPNEIC ,RR-30'S BUT SATURATING WELL 99 % . ON 2 PRESSORS ON MAX DOSE FOR BP SUPPORT,LEVOPHED DRIP AND NEOSYNEPHRINE DRIP INFUSING VIA SHELLY MIDLINE. EDEMA ON BOTH UE AND WEEPING ON BOTH ARMS. COMFORT CARE DONE.
[2020-10-20] MEDS ORDERED: VANCOMYCIN 500 MG in IV D5W 100 ML IV SCH (23:00)
--- NOTE | 2020-10-20 23:00 | NUR ---
vancomycin held, Vanco Trough=22
[2020-10-21] VITALS (73 sets, daily range): BP systolic 48–136; BP diastolic 26–95
--- NOTE | 2020-10-21 | NUR ---
REMAINS UNRESPONSIVE, V/S HOLDING WITH MAX DOSE PRESSORS.CONTINUE COMFORT CARE.
[2020-10-21] MEDS: BLOOD SUGAR DIAGNOSTIC 1 EACH STRIP IN SCH ×6 (01:59→21:32)
[2020-10-21] MEDS: IV D5/ 0.9% NACL 1,000 ML IV PRN ×2 (03:48→15:22)
[2020-10-21] MEDS: NOREPINEPHRINE 32 MG in IV NS 0.9% 218 ML IV PRN ×2 (04:36→15:47)
[2020-10-21] MEDS: HYDROCORTISONE SOD SUCCINATE 100 MG/2 ML VIAL IV SCH ×3 (05:45→22:03)
[2020-10-21] MEDS: INSULIN REGULAR, HUMAN 100 UNIT/ML 3 ML VIAL SQ PRN ×5 (05:47→22:09)
[2020-10-21 05:50] LABS: BASOPHILS # (AUTO) 0.1 /CMM (0.0-0.2); BASOPHILS % (AUTO) 0.2 % (0.0-2.0); EOSINOPHILS % (AUTO) 0.2 % (0.0-6.0); HEMATOCRIT 40 % (33-45); HEMOGLOBIN 12.5 g/dL (11.5-14.8); LYMPHOCYTES # (AUTO) 0.5 /CMM (0.8-4.8); LYMPHOCYTES % (AUTO) 1.1 % (20.0-44.0); MEAN CORPUSCULAR HGB CONC 32 g/dl (31.0-36.0); MEAN CORPUSCULAR VOLUME 92 fL (82-100); MONOCYTES # (AUTO) 1.8 /CMM (0.1-1.30); MONOCYTES % (AUTO) 4.2 % (2.0-12.0); NEUTROPHILS # (AUTO) 40.4 /CMM (1.8-8.9); NEUTROPHILS % (AUTO) 94.3 % (43.0-81.0); PLATELET COUNT (AUTO) 69 /CMM (150-450); RED BLOOD CELL COUNT(AUTO) 4.32 MIL/uL (4.0-5.2)
[2020-10-21 05:52] LABS: WHITE BLOOD COUNT (AUTO) 42.8 K/uL (4.3-11.0)
--- NOTE | 2020-10-21 06:00 | NUR ---
STATUS UNCHANGED, REMAINS UNRESPONSIVE,BREATHING STILL LABORED BUT LESS LABORED ON BIPAP 15/5,FIO2 50%.STILL ON MAX DOSE PRESSORS,BP EASILY DROPS INTO THE 70'S -80'S IF PRESSORS ARE TITRATED DOWN.WILL MAINTAIN ALL DRIPS AT THIS POINT.
[2020-10-21 06:11] LABS: CALCIUM, SERUM 7.6 mg/dL (8.5-10.1); CARBON DIOXIDE 14 mmol/L (21-32); CHLORIDE 117 mmol/L (98-107); CREATININE 2.6 mg/dL (0.6-1.3); MAGNESIUM 2.7 mg/dL (1.8-2.4); PHOSPHORUS 5.3 mg/dL (2.5-4.9); SODIUM SERUM 148 mmol/L (136-145)
[2020-10-21 06:12] LABS: GLUCOSE 393 mg/dL (74-106)
[2020-10-21 06:13] LABS: UREA NITROGEN, BLOOD 115 mg/dL (7-18)
[2020-10-21 06:22] LABS: BAND % (MANUAL) 7 % (0.0-5.0); LYMPHOCYTES % (MANUAL) 1 % (16-48); MONOCYTES % (MANUAL) 4 % (0-11.0); NEUTROPHILS % (MANUAL) 88 (42-76)
[2020-10-21] MEDS: PHENYLEPHRINE 100 MG in IV NS 0.9% 240 ML IV PRN ×2 (07:21→15:09)
--- NOTE | 2020-10-21 07:30 | NUR ---
RN OPENING NOTES patient received in bed, sedated and on BIPAP 15/5. Patient is breathing labored with 02 saturation of 06%. SHELLY midline noted with no s/s of infection or bleeding. Right EJ noted. Iv fluids hanging and running at 100 ml/hour. Patient on 2 drips of Levophed and Neosynephrine drip , george well. Will continue to monitor. Head of bed kept elevated. Will continue to monitor.
[2020-10-21] MEDS ORDERED: DEXTROSE 50%-WATER 50 ML DISP.SYRIN IVP ONE ×2 (08:00→16:30)
[2020-10-21] MEDS: GLUCERNA SHAKE 237 ML CAN PO SCH ×2 (08:00→17:00)
[2020-10-21] MEDS ORDERED: INSULIN REGULAR, HUMAN 100 UNIT/ML 3 ML VIAL IV ONE ×2 (08:00→17:00)
[2020-10-21] MEDS: ASPIRIN 81 MG TAB.CHEW PO SCH (09:00)
[2020-10-21] MEDS: MULTIVIT W/MINERALS 1 TAB TABLET PO SCH ×2 (09:00→09:11)
[2020-10-21] MEDS: HEPARIN SODIUM, PORCINE 5000 UNITS/1 ML VIAL SQ SCH ×2 (09:00→21:00)
[2020-10-21] MEDS: MEROPENEM 1 G in IV NS 0.9% 100 ML IV SCH ×2 (09:17→22:03)
[2020-10-21] MEDS ORDERED: BUMETANIDE INJ 4 MG in IV NS 0.9% 24 ML IV ONE (09:30)
[2020-10-21] MEDS ORDERED: SODIUM POLYSTYRENE SULFONATE 15 G/60 ML BOTTLE PO ONE (09:30)
[2020-10-21] MEDS: SODIUM POLYSTYRENE SULFONATE 15 G/60 ML BOTTLE PO ONE ×2 (10:05→13:04)
--- NOTE | 2020-10-21 13:00 | NUR ---
Received order from Dr Hayes to not give patient her kayexalate.
[2020-10-21 15:51] LABS: ALANINE AMINOTRANSFERASE 370 U/L (12-78); ALKALINE PHOSPHATASE 158 U/L (46-116); ASPARTATE AMINOTRANSFERASE 639 U/L (15-37); BILIRUBIN,TOTAL 0.8 mg/dL (0.2-1.0); CALCIUM, SERUM 6.8 mg/dL (8.5-10.1); CARBON DIOXIDE 12 mmol/L (21-32); CHLORIDE 124 mmol/L (98-107); CREATININE 2.6 mg/dL (0.6-1.3); GLUCOSE 335 mg/dL (74-106); MAGNESIUM 2.5 mg/dL (1.8-2.4); SODIUM SERUM 151 mmol/L (136-145)
[2020-10-21 15:57] LABS: POTASSIUM 6.4 mmol/L (3.5-5.1); UREA NITROGEN, BLOOD 124 mg/dL (7-18)
[2020-10-21 15:58] LABS: ALBUMIN 0.2 g/dL (3.4-5.0)
--- NOTE | 2020-10-21 18:50 | NUR ---
RN CLOSING NOTES patient in bed, sedated and on BIPAP 15/. Patient is breathing labored with 02 saturation of 98%. Iv fluids hanging and running at 100 ml/hour. Patient on 2 drips of Levophed and Neosynephrine drip , george well to right upper midline. Noted with 400 cc of urine during shift. Patient was given Insulin 10 units x 2 during shift along with D5 AMPULE each time for hyperkalemia. Order given by Dr Sherman.Will continue to monitor. Head of bed kept elevated. Will endorse to next shift for PUJA.
--- NOTE | 2020-10-21 19:47 | NUR ---
At 1730 patient noted with temp of 101. Informed Dr Sherman and received order to change current order of PO tylenol to Rectal. Order noted. Oncoming nurse aware while notifying doctor. Oncoming Nurse to given rectal suppository for Fever.
--- NOTE | 2020-10-21 19:50 | NUR ---
RN NOTE RECEIVED PT IN BED ON BIPAP, HAS UNLABORED BREATHING SATING 96%. SAFETY MEASURES IN PLACE.
[2020-10-21] MEDS ORDERED: ACETAMINOPHEN 650 MG/SUPP.RECT RC PRN (20:00)
--- NOTE | 2020-10-21 20:05 | NUR ---
RT NOTE PLACED PT ON BIPAP WITH CURRENT SETTINGS OF 15/5, 16, 50%. MASK SECURED WITH MEPILEX. BIPAP PLUGGED TO RED OUTLET. ALARMS ON AND AUDIBLE. PT TOLERATING WELL. SPO2 IMPROVED TO 97-99%. WILL CONTINUE TO MONITOR CLOSELY T/O SHIFT
[2020-10-21] MEDS ORDERED: PHYTONADIONE INJ 10 MG/1 ML AMPUL SQ ONE (21:30)
--- NOTE | 2020-10-21 22:00 | NUR ---
plt is 69, heparin non administered per dr Pimentel.
[2020-10-21] MEDS ORDERED: ACETAMINOPHEN 325 MG TABLET MC PRN (23:00)
--- NOTE | 2020-10-21 23:05 | NUR ---
received critical from lab plt 45.
--- NOTE | 2020-10-21 23:15 | NUR ---
INFORMED DR ARREOLA FOR PLT 45 NO ORDER AT THIS TIME.
[2020-10-21 23:21] LABS: D-DIMER 20.42 mg/L(FEU (0.17-0.50)
[2020-10-22] VITALS (27 sets, daily range): BP systolic 77–129; BP diastolic 48–98
[2020-10-22] MEDS: PHENYLEPHRINE 100 MG in IV NS 0.9% 240 ML IV PRN (01:06)
[2020-10-22] MEDS: INSULIN REGULAR, HUMAN 100 UNIT/ML 3 ML VIAL SQ PRN ×2 (01:24→05:44)
[2020-10-22] MEDS: BLOOD SUGAR DIAGNOSTIC 1 EACH STRIP IN SCH ×2 (01:26→05:29)
[2020-10-22] MEDS: IV D5/ 0.9% NACL 1,000 ML IV PRN (01:26)
[2020-10-22] MEDS: NOREPINEPHRINE 32 MG in IV NS 0.9% 218 ML IV PRN (02:21)
[2020-10-22] MEDS: HYDROCORTISONE SOD SUCCINATE 100 MG/2 ML VIAL IV SCH (05:29)
[2020-10-22 05:36] LABS: BASOPHILS # (AUTO) 0.2 /CMM (0.0-0.2); BASOPHILS % (AUTO) 0.4 % (0.0-2.0); HEMATOCRIT 41 % (33-45); HEMOGLOBIN 12.7 g/dL (11.5-14.8); LYMPHOCYTES # (AUTO) 0.8 /CMM (0.8-4.8); LYMPHOCYTES % (AUTO) 1.5 % (20.0-44.0); MEAN CORPUSCULAR HGB CONC 31 g/dl (31.0-36.0); MEAN CORPUSCULAR VOLUME 92 fL (82-100); MONOCYTES # (AUTO) 1.3 /CMM (0.1-1.30); MONOCYTES % (AUTO) 2.7 % (2.0-12.0); NEUTROPHILS % (AUTO) 95.4 % (43.0-81.0); RED BLOOD CELL COUNT(AUTO) 4.43 MIL/uL (4.0-5.2)
[2020-10-22 05:39] LABS: PLATELET COUNT (AUTO) 43 /CMM (150-450); WHITE BLOOD COUNT (AUTO) 49.3 K/uL (4.3-11.0)
[2020-10-22 05:49] LABS: CALCIUM, SERUM 7.3 mg/dL (8.5-10.1); CARBON DIOXIDE 18 mmol/L (21-32); CHLORIDE 124 mmol/L (98-107); CREATININE 2.7 mg/dL (0.6-1.3); GLUCOSE 193 mg/dL (74-106); POTASSIUM 5.5 mmol/L (3.5-5.1); SODIUM SERUM 154 mmol/L (136-145)
[2020-10-22 06:09] LABS: UREA NITROGEN, BLOOD 129 mg/dL (7-18)
--- NOTE | 2020-10-22 06:30 | NUR ---
RECEIVED CRITICAL LAB PLT 42, INFORMED DR ARREOLA NO ORDER AT THIS TIME.
[2020-10-22 07:28] LABS: D-DIMER 35.2 mg/L(FEU (0.17-0.50)
--- NOTE | 2020-10-22 07:30 | NUR ---
RN NOTE PT REMAINED STABLE DURING MY SHIFT, REPORT GIVEN TO INCOMING SHIFT FOR PUJA.
--- NOTE | 2020-10-22 07:30 | NUR ---
RECEIVED PT IN BED. NON VERBAL. PT BLOOD PRESSURE LESS THAN NORMAL LIMITS. DEPENDENT ON BIPAP. PT IN DNR/DNI STATUS. WILL CONTINUE TO MONITOR.
[2020-10-22] MEDS ORDERED: VANCOMYCIN 500 MG in IV D5W 100ml IV SCH (08:00)
[2020-10-22] MEDS: MULTIVIT W/MINERALS 1 TAB TABLET PO SCH (08:56)
[2020-10-22] MEDS: MEROPENEM 1 G in IV NS 0.9% 100 ML IV SCH (08:56)
[2020-10-22] MEDS: GLUCERNA SHAKE 237 ML CAN PO SCH (08:56)
[2020-10-22] MEDS: ASPIRIN 81 MG TAB.CHEW PO SCH (08:57)
[2020-10-22] MEDS ORDERED: SODIUM BICARBONATE SYR 50 MEQ/50 ML DISP.SYRIN IV ONE (09:00)
--- NOTE | 2020-10-22 09:15 | NUR ---
PT VITAL SIGNS UNOBTAINABLE. PT IS DNR / DNI. DR URRUTIA MADE AWARE. FAMILY AWARE, AND STATED THEY WILL CALL BACK FOR ANY QUESTIONS. NURSING SKEIN YARN DRIER (Felicia RAMIRES) AND ADMITTING STAFF (JORJE) AWARE. POSTMORTEM CARE DONE.
== END 2020-10-22 11:10 | disposition expired | DRG 871 ==
LOC: ER 19:17 → TRANSITION 23:16 → TELE 10-15 07:31 → MED 10-16 09:54 → ICU 10-19 04:54
PROVIDERS: ADMIT Nurse Practitioner Acute Care; ATTEND Internal Medicine
PROC: 05H533Z Insertion of Infusion Device into Right Subclavian Vein, Percutaneous Approach (ICD-10-PCS; principal; 2020-10-15)
PROC: B546ZZA Ultrasonography of Right Subclavian Vein, Guidance (ICD-10-PCS; 2020-10-15)
PROC: 5A09457 Assistance with Respiratory Ventilation, 24-96 Consecutive Hours, Continuous Positive Airway Pressure (ICD-10-PCS; 2020-10-19)
DX: A41.9 Sepsis, unspecified organism (principal); N17.0 Acute kidney failure with tubular necrosis; J15.9 Unspecified bacterial pneumonia; I21.A1 Myocardial infarction type 2; G93.41 Metabolic encephalopathy; R65.21 Severe sepsis with septic shock; E11.10 Type 2 diabetes mellitus with ketoacidosis without coma; G92 Toxic encephalopathy; J69.0 Pneumonitis due to inhalation of food and vomit; J96.01 Acute respiratory failure with hypoxia; L03.115 Cellulitis of right lower limb; L03.116 Cellulitis of left lower limb; E87.1 Hypo-osmolality and hyponatremia; D68.69 Other thrombophilia; E87.2 Acidosis; F03.91 Unspecified dementia, unspecified severity, with behavioral disturbance; R64 Cachexia; Z68.1 Body mass index [BMI] 19.9 or less, adult; I50.9 Heart failure, unspecified; E86.1 Hypovolemia; E86.0 Dehydration; E11.65 Type 2 diabetes mellitus with hyperglycemia; E87.5 Hyperkalemia; M40.209 Unspecified kyphosis, site unspecified; R19.00 Intra-abdominal and pelvic swelling, mass and lump, unspecified site; Z74.09 Other reduced mobility; Z79.4 Long term (current) use of insulin; D69.6 Thrombocytopenia, unspecified; Z66 Do not resuscitate; Z20.822 Contact with and (suspected) exposure to COVID-19; C54.1 Malignant neoplasm of endometrium; E11.22 Type 2 diabetes mellitus with diabetic chronic kidney disease; I48.91 Unspecified atrial fibrillation; R62.7 Adult failure to thrive; N18.9 Chronic kidney disease, unspecified
CPT/HCPCS: 31720; 36410; 36415; 36600; 71045-TC; 72195-TC; 76700-TC; 80048-TC; 80053-TC; 80076-TC; 80202-TC; 81001; 82150-TC; 82533; 82962-TC; 83605-TC; 83690-TC; 83735-TC; 84100-TC; 84484-TC; 85025-TC; 85396; 85610-TC; 85730-TC; 87040-TC; 87081-TC; 87086-TC; 92526; 92611-TC; 94003-TC; 94660; 94799-TC; 99082-TC; A6253; C9803; G0378; J0692; J1644; J1720; J1815; J1940; J2185; J2370; J2543; J3370; J3430; J3490; J7030; J7040; J7042; J7050; J7060; J7070